=== PATIENT | male | born 1960 | race Caucasian/White ===

== ENCOUNTER 2018-12-17 01:41 | Inpatient (IN) | payer MEDICAID, OTHER ==
[2018-12-17 01:41] VITALS: BMI 32.8
--- NOTE | 2018-12-17 02:03 | C.PDOC ---
History Of Present Illness 58 year old male with Hx of CHF presents with SOB and chest pain. Denies nausea or vomiting. Chief Complaint (Nursing): Chest Pain History Per: Patient History/Exam Limitations: no limitations Onset/Duration Of Symptoms: Hrs Current Symptoms Are (Timing): Still Present Associated Symptoms: Dyspnea. denies: Nausea Exacerbating Factors: None Recent travel outside of the [place]: No Past Medical History Reviewed: Historical Data, Nursing Documentation, Vital Signs Vital Signs: Last Vital Signs Temp 101.3 F H 12/17/18 01:47 Pulse 93 H 12/17/18 02:01 Resp 30 H 12/17/18 01:47 BP 119/77 12/17/18 01:47 Pulse Ox 96 12/17/18 01:47 - Medical History PMH: Colonic Polyps, Gastritis, HTN, Hypercholesterolemia Denies: Chronic Kidney Disease Surgical History: Endoscopy - [facility] Procedures CORONAR ARTERIOGR-2 CATH (09/02/14) ENDOSC POLYPECTOMY OF LG INTEST (12/31/14) ESOPHAGOGASTRODUODENOSCOPY [EGD] W/CLOSED BIOPSY (01/07/15) LEFT HEART CARDIAC CATH (09/02/14) LT HEART ANGIOCARDIOGRAM (09/02/14) Family History: States: Unknown Family Hx - Social History Hx Alcohol Use: No Hx Substance Use: No Review Of Systems Constitutional: Negative for: Fever, Chills Cardiovascular: Positive for: Chest Pain. Negative for: Palpitations Respiratory: Positive for: Shortness of Breath. Negative for: Cough Gastrointestinal: Negative for: Nausea, Vomiting Neurological: Negative for: Weakness, Numbness Physical Exam - Physical Exam Appears: Non-toxic, Other (Dyspenic on bipap) Skin: Normal Color, Warm, Dry Head: Atraumatic, Normacephalic Eye(s): bilateral: Normal Inspection Oral Mucosa: Moist Chest: Symmetrical, No Tenderness Cardiovascular: Rhythm Regular Respiratory: Rales (Bilaterally), No Rhonchi, No Wheezing Gastrointestinal/Abdominal: Soft, No Tenderness Extremity: No Pedal Edema Neurological/Psych: Oriented x3, Normal Speech ED Course And Treatment - Laboratory Results Result Diagrams: 12/17/18 02:19 12/17/18 02:19 ECG: Interpreted By Me, Viewed By Me ECG Rhythm: Sinus Rhythm, ST/T Changes ECG Interpretation: Abnormal Interpretation Of ECG: NSR, ST-T abnormality- inferollateral leads, IVCD- LBBBtype. abnormal trcings. O2 Sat by Pulse Oximetry: 96 (Room air) Pulse Ox Interpretation: Normal Progress Note: Blood work, EKG, CXR, and urinalysis ordered. Disposition Discussed With DrChapis: Eligio Booth Jr. Doctor Will See Patient In The: Hospital Counseled Patient/Family Regarding: Diagnosis - Disposition Disposition: HOSPITALIZED Disposition Time: 03:47 Condition: STABLE Forms: [facility] (Emirati) - POA Present On Arrival: None - Clinical Impression Clinical Impression: Chest pain, Congestive heart failure - Scribe Statement The provider has reviewed the documentation as recorded by the Scribe Silvino Bautista All medical record entries made by the Scribe were at my direction and personally dictated by me. I have reviewed the chart and agree that the record accurately reflects my personal performance of the history, physical exam, medical decision making, and the department course for this patient. I have also personally directed, reviewed, and agree with the discharge instructions and disposition.
[2018-12-17 02:19] LABS: URINE BILIRUBIN NEGATIVE (NEGATIVE); URINE BLOOD NEGATIVE (NEGATIVE); URINE CLARITY Clear (Clear); URINE COLOR Straw (YELLOW); URINE GLUCOSE (UA) NORMAL (Normal); URINE LEUKOCYTE ESTERASE NEG Leu/uL (Negative); URINE PROTEIN NEGATIVE (NEGATIVE); URINE UROBILINOGEN NORMAL mg/dL (0.2-1.0)
[2018-12-17 02:22] LABS: BASO # 0.1 K/uL (0.0-0.2); BASO % 0.7 % (0.0-2.0); EOS # 0.1 K/uL (0.0-0.7); EOS % 0.7 % (0.0-4.0); HEMOGLOBIN 13.1 g/dL (12.0-18.0); LYMPH # 0.7 K/uL (1.0-4.3); LYMPH % 5.6 % (20.0-40.0); MEAN CELL VOLUME 73.1 fL (80.0-94.0); MEAN CORPUSCULAR HEMOGLOBIN 22.2 pg (27.0-31.0); MEAN CORPUSCULAR HGB CONC 30.4 g/dL (33.0-37.0); MEAN PLATELET VOLUME 11.7 fL (7.2-11.7); MONO # 0.6 K/uL (0.0-0.8); MONO % 4.5 % (0.0-10.0); NEUT # 10.9 K/uL (1.8-7.0); NEUT % 88.5 % (50.0-75.0); PLATELET COUNT 176 K/uL (130-400); RBC 5.88 Mil/uL (4.40-5.90); RED CELL DISTRIBUTION WIDTH 16.4 % (11.5-14.5); WHITE BLOOD COUNT 12.3 K/uL (4.8-10.8)
[2018-12-17 02:38] LABS: ALB/GLOB RATIO 1.4 (1.0-2.1); ALBUMIN 4.1 g/dL (3.5-5.0); ALT/SGPT 35 U/L (21-72); AST/SGOT 23 U/L (17-59); BLOOD UREA NITROGEN 18 mg/dL (9-20); CALCIUM 11.4 mg/dl (8.6-10.4); GFR NON-AFRICAN AMERICAN > 60
[2018-12-17 02:43] LABS: ABG ALLEN TEST POS; ARTERIAL BLOOD GAS HCO3 21.7 mmol/L (21-28); ARTERIAL BLOOD GAS O2 SAT 99.6 % (95-98); ARTERIAL BLOOD GAS PCO2 33 mm/Hg (35-45); ARTERIAL BLOOD GAS PH 7.39 (7.35-7.45); ARTERIAL BLOOD GAS PO2 114 mm/Hg (80-100)
[2018-12-17 02:59] LABS: BANDS 1 % (0-2); LYMPHOCYTE 6 % (20-40); MONOCYTE 5 % (0-10); NEUTROPHIL 88 % (50-75); PLATELET ESTIMATE NORMAL (NORMAL); TOTAL CELLS COUNTED 100
--- NOTE | 2018-12-17 04:07 | CP.PCM.HP ---
History of Present Illness - History of Present Illness History of Present Illness: Patient is a 58 year old male w/ pmhx of CHF, HTN, DM2 who presents to the ED for evaluation of acute onset chest pain with associated SOB just prior to arrival. Pt's took his BP at home during episode and reports a reading of 222/100s, and administered aspirin 324mg at home. Pt reports he was recently admitted 12/05/18 at [facility] with similar symptoms and was told he suffered damage to his heart, but is not sure of the diagnosis. Pt was given nitro, lasix by EMS en route, and was placed on BiPAP on arrival. Pt reports chills during episode, and was febrile at 101.3 in ED. Pt reports resolution of symptoms currently while on BiPAP. Denies recent illness, LE pain/edema, cough, nausea, diarrhea. 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 on Admission - Present on Admission Any Indicators Present on Admission: No Review of Systems - Constitutional Constitutional: Chills - EENT Eyes: absent: Blurred Vision - Cardiovascular Cardiovascular: Chest Pain, Dyspnea - Respiratory Respiratory: absent: Cough, Chest Congestion - Gastrointestinal Gastrointestinal: absent: Diarrhea, Nausea, Vomiting - Genitourinary Genitourinary: absent: Dysuria Past Patient History - Infectious Disease Hx of Infectious Diseases: None - Past Medical History & Family History Past Medical History?: Yes - Past Social History Smoking Status: Former Smoker - CARDIAC Hx Hypercholesterolemia: Yes Hx Hypertension: Yes - PULMONARY Hx Respiratory Disorders: No - NEUROLOGICAL Hx Neurological Disorder: No - HEENT Hx HEENT Problems: No - RENAL Hx Chronic Kidney Disease: No - ENDOCRINE/METABOLIC Hx Endocrine Disorders: Yes Hx Diabetes Mellitus Type 2: Yes - HEMATOLOGICAL/ONCOLOGICAL Hx Blood Disorders: No - INTEGUMENTARY Hx Dermatological Problems: No - MUSCULOSKELETAL/RHEUMATOLOGICAL Hx Musculoskeletal Disorders: Yes Other/Comment: RT ANKLE SURGERY - GASTROINTESTINAL Hx Gastritis: Yes - GENITOURINARY/GYNECOLOGICAL Hx Genitourinary Disorders: No - PSYCHIATRIC Hx Substance Use: No - SURGICAL HISTORY Hx Surgeries: Yes Hx Orthopedic Surgery: Yes (RIGHT ANKLE WITH SCREWS) - ANESTHESIA Hx Anesthesia: Yes Hx Anesthesia Reactions: No Hx Malignant Hyperthermia: No Meds Allergies/Adverse Reactions: Allergies Allergy/AdvReac Type Severity Reaction Status Date / Time No Known Allergies Allergy Verified 09/22/15 17:59 Physical Exam - Constitutional Appears: Non-toxic, No Acute Distress - Head Exam Head Exam: ATRAUMATIC, NORMAL INSPECTION, NORMOCEPHALIC - Eye Exam Eye Exam: EOMI, Normal appearance - ENT Exam ENT Exam: Mucous Membranes Dry, Normal Exam - Neck Exam Neck exam: Positive for: Normal Inspection - Respiratory Exam Respiratory Exam: NORMAL BREATHING PATTERN. absent: Wheezes Additional comments: on BiPAP - Cardiovascular Exam Cardiovascular Exam: REGULAR RHYTHM, +S1, +S2. absent: Tachycardia - GI/Abdominal Exam GI & Abdominal Exam: Normal Bowel Sounds, Soft. absent: Tenderness - Extremities Exam Extremities exam: Positive for: normal capillary refill. Negative for: calf tenderness, pedal edema - Neurological Exam Neurological exam: Alert, Oriented x3 - Psychiatric Exam Psychiatric exam: Normal Affect, Normal Mood - Skin Skin Exam: Dry, Intact, Normal Color, Warm Additional comments: skin diffusely dry Results - Vital Signs Recent Vital Signs: Last Vital Signs Temp 101.3 F H 12/17/18 01:47 Pulse 93 H 12/17/18 02:01 Resp 26 H 12/17/18 01:50 BP 119/77 12/17/18 01:47 Pulse Ox 96 12/17/18 03:52 - Labs Result Diagrams: 12/17/18 02:19 12/17/18 02:19 Labs: Laboratory Results - last 24 hr 12/17/18 12/17/18 12/17/18 01:55 02:03 02:19 WBC 12.3 H D RBC 5.88 Hgb 13.1 Hct 43.0 MCV 73.1 L MCH 22.2 L MCHC 30.4 L RDW 16.4 H Plt Count 176 MPV 11.7 Neut % (Auto) 88.5 H Lymph % (Auto) 5.6 L [place] % (Auto) 4.5 Eos % (Auto) 0.7 Baso % (Auto) 0.7 Neut # (Auto) 10.9 H Lymph # (Auto) 0.7 L [place] # (Auto) 0.6 Eos # (Auto) 0.1 Baso # (Auto) 0.1 Neutrophils % (Manual) 88 H Band Neutrophils % 1 Lymphocytes % (Manual) 6 L Monocytes % (Manual) 5 Platelet Estimate Normal D-Dimer, Quantitative Puncture Site pCO2 pO2 HCO3 ABG pH ABG Total CO2 ABG O2 Saturation ABG Base Excess ABG Hemoglobin ABG Carboxyhemoglobin POC ABG HHb (Measured) ABG Methemoglobin Emeka Test A-a O2 Difference Respiratory Index Hgb O2 Saturation Vent Mode FiO2 Inspiratory BiPAP Expiratory BiPAP Sodium Potassium Chloride Carbon Dioxide Anion Gap BUN Creatinine Est GFR ( Amer) Est GFR (Non-Af Amer) POC Glucose (mg/dL) 227 H Random Glucose Calcium Total Bilirubin AST ALT Alkaline Phosphatase Troponin I NT-Pro-B Natriuret Pep Total Protein Albumin Globulin Albumin/Globulin Ratio Urine Color Straw Urine Clarity Clear Urine pH 5.0 Ur Specific [place] 1.008 Urine Protein Negative Urine Glucose (UA) Normal Urine Ketones Negative Urine Blood Negative Urine Nitrate Negative Urine Bilirubin Negative Urine Urobilinogen Normal Ur Leukocyte Esterase Neg Urine WBC (Auto) < 1 Urine RBC (Auto) < 1 12/17/18 12/17/18 12/17/18 02:19 02:19 02:20 WBC RBC Hgb Hct MCV MCH MCHC RDW Plt Count MPV Neut % (Auto) Lymph % (Auto) [place] % (Auto) Eos % (Auto) Baso % (Auto) Neut # (Auto) Lymph # (Auto) [place] # (Auto) Eos # (Auto) Baso # (Auto) Neutrophils % (Manual) Band Neutrophils % Lymphocytes % (Manual) Monocytes % (Manual) Platelet Estimate D-Dimer, Quantitative < 200 Puncture Site R rad pCO2 33 L pO2 114 H HCO3 21.7 ABG pH 7.39 ABG Total CO2 21.0 L ABG O2 Saturation 99.6 H ABG Base Excess -4.1 L ABG Hemoglobin 13.0 ABG Carboxyhemoglobin 1.9 H POC ABG HHb (Measured) 0.4 ABG Methemoglobin 1.7 Emeka Test Pos A-a O2 Difference 130.0 Respiratory Index 1.1 Hgb O2 Saturation 96.0 Vent Mode Bipap FiO2 40.0 Inspiratory BiPAP 12 Expiratory BiPAP 6 Sodium 134 Potassium 4.5 Chloride 105 Carbon Dioxide 22 Anion Gap 12 BUN 18 Creatinine 1.2 Est GFR ( Amer) > 60 Est GFR (Non-Af Amer) > 60 POC Glucose (mg/dL) Random Glucose 213 H D Calcium 11.4 H Total Bilirubin 0.7 AST 23 ALT 35 Alkaline Phosphatase 123 Troponin I < 0.0120 NT-Pro-B Natriuret Pep Total Protein 7.2 Albumin 4.1 Globulin 3.1 Albumin/Globulin Ratio 1.4 Urine Color Urine Clarity Urine pH Ur Specific [place] Urine Protein Urine Glucose (UA) Urine Ketones Urine Blood Urine Nitrate Urine Bilirubin Urine Urobilinogen Ur Leukocyte Esterase Urine WBC (Auto) Urine RBC (Auto) 12/17/18 03:08 WBC RBC Hgb Hct MCV MCH MCHC RDW Plt Count MPV Neut % (Auto) Lymph % (Auto) [place] % (Auto) Eos % (Auto) Baso % (Auto) Neut # (Auto) Lymph # (Auto) [place] # (Auto) Eos # (Auto) Baso # (Auto) Neutrophils % (Manual) Band Neutrophils % Lymphocytes % (Manual) Monocytes % (Manual) Platelet Estimate D-Dimer, Quantitative Puncture Site pCO2 pO2 HCO3 ABG pH ABG Total CO2 ABG O2 Saturation ABG Base Excess ABG Hemoglobin ABG Carboxyhemoglobin POC ABG HHb (Measured) ABG Methemoglobin Emeka Test A-a O2 Difference Respiratory Index Hgb O2 Saturation Vent Mode FiO2 Inspiratory BiPAP Expiratory BiPAP Sodium Potassium Chloride Carbon Dioxide Anion Gap BUN Creatinine Est GFR ( Amer) Est GFR (Non-Af Amer) POC Glucose (mg/dL) Random Glucose Calcium Total Bilirubin AST ALT Alkaline Phosphatase Troponin I NT-Pro-B Natriuret Pep 1280 H Total Protein Albumin Globulin Albumin/Globulin Ratio Urine Color Urine Clarity Urine pH Ur Specific [place] Urine Protein Urine Glucose (UA) Urine Ketones Urine Blood Urine Nitrate Urine Bilirubin Urine Urobilinogen Ur Leukocyte Esterase Urine WBC (Auto) Urine RBC (Auto) Assessment & Plan - Assessment and Plan (Free Text) Assessment: 58 year old male with pmhx CHF, HTN, DM2 admitted for evaluation of acute onset chest pain and SOB Plan: Chest pain, r/o ACS Monitor on telemetry EKG: LVH, QRS widening with repolarization abnormality F/U RUBEN, first troponin negative f/u hgb a1c f/u lipid panel ASA 81mg start crestor 5mg po HS Cardio consult, SOB r/o CHF exacerbation pBNP 1280 on admission BiPAP prn I/Os r/o PE d-dimer <200 Hypercalcemia 11.4 on admission PTH(2013) elevated at 140 f/u PTH ordered f/u ionized Ca+ f/u Vit D f/u CLEMENTINA level NS @75 Fever/Leukocytosis f/u blood cx f/u cxr report Tylenol 650mg po q6 prn DM2 hold home metformin f/u hgb a1c ISS-medium accuchecks ACHS hypoglycemia protocol HTN hold home meds pt hypotensive likely 2/2 dehydration NS @75 Ppx: heparin 5000 q8 pepcid 20mg po BID Discussed with Dr. Emmy Garza, PGY-1
[2018-12-17] MEDS ORDERED: Glucagon Recombinant 1 mg Inj IM PRN (05:10)
[2018-12-17] MEDS ORDERED: Dextrose 50% SYRINGE Inj (50 ml) IV PRN (05:10)
[2018-12-17] MEDS ORDERED: Sodium Chloride 0.9% 1,000 ML IV SCH (05:30)
[2018-12-17 06:23] LABS: INR 1.3; PROTHROMBIN TIME 13.7 SECONDS (9.7-12.2)
--- NOTE | 2018-12-17 07:30 | RAD ---
Chest x-ray single frontal view History: Shortness of breath. Comparison: None available. Findings: Moderate venous congestion. Bibasilar airspace opacities. Bilateral hilar prominence. Enlarged ectatic aorta. Cardiomegaly. Upper lobe granulomatous changes. Impression: Moderate venous congestion. Bibasilar airspace opacities. Bilateral hilar prominence. Enlarged ectatic aorta. Cardiomegaly.
[2018-12-17] MEDS: (Novolin R) Insulin Human Regular 100 units/ml vial SC SCH ×4 (08:00→21:42)
--- NOTE | 2018-12-17 08:13 | CP.PCM.PN ---
Subjective - Date & Time of Evaluation Date of Evaluation: 12/17/18 Time of Evaluation: 08:01 - Subjective Subjective: Medicine Note for Hospitalist Service Patient was seen and examined at bedside. Patient reports his breathing has improved, denied any chest pain. Objective - Vital Signs/Intake and Output Vital Signs (last 24 hours): Temp Pulse Resp BP Pulse Ox 97.4 F L 60 20 97/58 L 99 12/17/18 07:03 12/17/18 07:03 12/17/18 07:03 12/17/18 07:03 12/17/18 06:04 - Medications Medications: Current Medications Acetaminophen (Tylenol 325mg Tab) 650 mg PO Q6 PRN PRN Reason: Fever >100.4 F Aspirin (Aspirin Chewable) 81 mg PO DAILY [facility] Dextrose (Dextrose 50% Inj) 0 ml IV STAT PRN; Protocol PRN Reason: Hypoglycemia Protocol Dextrose (Glutose 15) 0 gm PO ONCE PRN; Protocol PRN Reason: Hypoglycemia Protocol Famotidine (Pepcid) 20 mg PO BID UGO Glucagon (Glucagen Diagnostic Kit) 0 mg IM STAT PRN; Protocol PRN Reason: Hypoglycemia Protocol Heparin Sodium (Porcine) (Heparin) 5,000 units SC Q8 [facility] Last Admin: 12/17/18 07:01 Dose: 5,000 units Dextrose (Dextrose 5% In Water 1000 Ml) 1,000 mls @ 0 mls/hr IV .Q0M PRN; Protocol PRN Reason: Hypoglycemia Protocol Sodium Chloride (Sodium Chloride 0.9%) 1,000 mls @ 75 mls/hr IV .[id number] [facility] Last Admin: 12/17/18 07:01 Dose: 75 mls/hr Insulin Human Regular (Novolin R) 0 unit SC ACHS [facility]; Protocol Rosuvastatin Calcium (Crestor) 5 mg PO HS [facility] - Labs Labs: 12/17/18 02:19 12/17/18 02:19 PT 13.7 SECONDS (9.7-12.2) H 12/17/18 06:15 INR 1.3 12/17/18 06:15 APTT 35 SECONDS (21-34) H 12/17/18 06:15 - Constitutional Appears: No Acute Distress - Head Exam Head Exam: ATRAUMATIC, NORMAL INSPECTION, NORMOCEPHALIC - Eye Exam Eye Exam: EOMI, Normal appearance, PERRL Pupil Exam: NORMAL ACCOMODATION - ENT Exam ENT Exam: Mucous Membranes Moist - Respiratory Exam Respiratory Exam: Rales (faint rales at both lung bases ), NORMAL BREATHING PATTERN - Cardiovascular Exam Cardiovascular Exam: REGULAR RHYTHM, +S1, +S2 - GI/Abdominal Exam GI & Abdominal Exam: Soft, Normal Bowel Sounds. absent: Distended, Tenderness - Extremities Exam Extremities Exam: Normal Inspection. absent: Pedal Edema, Tenderness - Neurological Exam Neurological Exam: Alert, Awake, Oriented x3 - Psychiatric Exam Psychiatric exam: Normal Affect, Normal Mood - Skin Skin Exam: Dry, Intact, Normal Color, Warm Assessment and Plan - Assessment and Plan (Free Text) Plan: Chest Pain R/O ACS -- Cardiology consulted - Dr. Hazel Management: - RUBEN x 2 negative, will trend RUBEN x 1 - EKG: LVH noted - ECHO ordered - ASA, Crestor - Will follow up with Cardio reccs Hx of Heart Failure Imaging: - ECHO ordered Management: - BNP 1280, no prior to compare - Will not diuresis as patient is clinically dry Febrile, Leukocytosis, Hypotensive SIRS Criteria Imaging: - CXR: No infiltrates noted Management: - UA - clean, UC ordered - Blood Cultures ordered - Flu negative - Procal ordered - Currently off BiPAP - Gentle fluids started, will monitor to prevent fluid overload Hypercalcemia Hx of Hyperparathyroidism? Management: - Labs ordered for workup Hypertension - Held BP meds in light of hypotension Type 2 DM - Accuchecks ACHS - Hypoglycemia protocol - ISS- Medium, held Metformin - A1C 6.9 Prophylactic Measures - GI PPX: Pepcid - DVT PPX: SCDs, Hep Q8H - HHD DW Maria Del Rosario Loya DO, PGY2
[2018-12-17 08:23] LABS: HDL CHOLESTEROL 29 mg/dL (30-70)
[2018-12-17 08:33] LABS: CK-MB 0.46 ng/mL (0.0-3.38)
[2018-12-17 08:49] LABS: LDL CHOLESTEROL 84 mg/dL (0-129)
[2018-12-17] MEDS: Sodium Chloride 0.45% 1,000 ML IV SCH (12:00)
[2018-12-17 15:00] LABS: CK-MB 0.52 ng/mL (0.0-3.38)
--- NOTE | 2018-12-17 23:38 | CP.PCM.CON ---
History of Present Illness - History of Present Illness History of Present Illness: CC: Dyspnea and Chest pain Patient is a 58 year old male w/ pmhx of CHF, HTN, DM2 who presents to the ED for evaluation of acute onset chest pain with associated SOB just prior to arrival. Pt's took his BP at home during episode and reports a reading of 222/100s, and administered aspirin 324mg at home. Pt reports he was recently admitted 12/05/18 at [facility] with similar symptoms and was told he suffered damage to his heart, but is not sure of the diagnosis. Pt was given nitro, lasix by EMS en route, and was placed on BiPAP on arrival. Pt reports chills during episode, and was febrile at 101.3 in ED. Pt reports resolution of symptoms currently while on BiPAP. Denies recent illness, LE pain/edema, cough, nausea, diarrhea. 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, over[employer] Present on Admission - Present on Admission Any Indicators Present on Admission: No Review of Systems - Constitutional Constitutional: Chills - EENT Eyes: absent: Blurred Vision - Cardiovascular Cardiovascular: Chest Pain, Dyspnea - Respiratory Respiratory: absent: Cough, Chest Congestion - Gastrointestinal Gastrointestinal: absent: Diarrhea, Nausea, Vomiting - Genitourinary Genitourinary: absent: Dysuria Past Patient History - Infectious Disease Hx of Infectious Diseases: None - Past Medical History & Family History Past Medical History?: Yes - Past Social History Smoking Status: Former Smoker - CARDIAC Hx Hypercholesterolemia: Yes Hx Hypertension: Yes - PULMONARY Hx Respiratory Disorders: No - NEUROLOGICAL Hx Neurological Disorder: No - HEENT Hx HEENT Problems: No - RENAL Hx Chronic Kidney Disease: No - ENDOCRINE/METABOLIC Hx Endocrine Disorders: Yes Hx Diabetes Mellitus Type 2: Yes - HEMATOLOGICAL/ONCOLOGICAL Hx Blood Disorders: No - INTEGUMENTARY Hx Dermatological Problems: No - MUSCULOSKELETAL/RHEUMATOLOGICAL Hx Musculoskeletal Disorders: Yes Other/Comment: RT ANKLE SURGERY - GASTROINTESTINAL Hx Gastritis: Yes - GENITOURINARY/GYNECOLOGICAL Hx Genitourinary Disorders: No - PSYCHIATRIC Hx Substance Use: No - SURGICAL HISTORY Hx Surgeries: Yes Hx Orthopedic Surgery: Yes (RIGHT ANKLE WITH SCREWS) - ANESTHESIA Hx Anesthesia: Yes Hx Anesthesia Reactions: No Hx Malignant Hyperthermia: No Meds Allergies/Adverse Reactions: Allergies Allergy/AdvReac Type Severity Reaction Status Date / Time No Known Allergies Allergy Verified 09/22/15 17:59 Physical Exam - Constitutional Appears: Non-toxic, No Acute Distress - Head Exam Head Exam: ATRAUMATIC, NORMAL INSPECTION, NORMOCEPHALIC - Eye Exam Eye Exam: EOMI, Normal appearance - ENT Exam ENT Exam: Mucous Membranes Dry, Normal Exam - Neck Exam Neck exam: Positive for: Normal Inspection - Respiratory Exam Respiratory Exam: NORMAL BREATHING PATTERN. absent: Wheezes Additional comments: on BiPAP - Cardiovascular Exam Cardiovascular Exam: REGULAR RHYTHM, +S1, +S2. absent: Tachycardia - GI/Abdominal Exam GI & Abdominal Exam: Normal Bowel Sounds, Soft. absent: Tenderness - Extremities Exam Extremities exam: Positive for: normal capillary refill. Negative for: calf tenderness, pedal edema - Neurological Exam Neurological exam: Alert, Oriented x3 - Psychiatric Exam Psychiatric exam: Normal Affect, Normal Mood - Skin Skin Exam: Dry, Intact, Normal Color, Warm Additional comments: skin diffusely dry Results - Vital Signs Recent Vital Signs: Last Vital Signs Temp 101.3 F H 12/17/18 01:47 Pulse 93 H 12/17/18 02:01 Resp 26 H 12/17/18 01:50 BP 119/77 12/17/18 01:47 Pulse Ox 96 12/17/18 03:52 - Labs Result Diagrams: 12/17/18 02:19 12/17/18 02:19 Labs: Laboratory Results - last 24 hr 12/17/18 12/17/18 12/17/18 01:55 02:03 02:19 WBC 12.3 H D RBC 5.88 Hgb 13.1 Hct 43.0 MCV 73.1 L MCH 22.2 L MCHC 30.4 L RDW 16.4 H Plt Count 176 MPV 11.7 Neut % (Auto) 88.5 H Lymph % (Auto) 5.6 L [place] % (Auto) 4.5 Eos % (Auto) 0.7 Baso % (Auto) 0.7 Neut # (Auto) 10.9 H Lymph # (Auto) 0.7 L [place] # (Auto) 0.6 Eos # (Auto) 0.1 Baso # (Auto) 0.1 Neutrophils % (Manual) 88 H Band Neutrophils % 1 Lymphocytes % (Manual) 6 L Monocytes % (Manual) 5 Platelet Estimate Normal D-Dimer, Quantitative Puncture Site pCO2 pO2 HCO3 ABG pH ABG Total CO2 ABG O2 Saturation ABG Base Excess ABG Hemoglobin ABG Carboxyhemoglobin POC ABG HHb (Measured) ABG Methemoglobin Emeka Test A-a O2 Difference Respiratory Index Hgb O2 Saturation Vent Mode FiO2 Inspiratory BiPAP Expiratory BiPAP Sodium Potassium Chloride Carbon Dioxide Anion Gap BUN Creatinine Est GFR ( Amer) Est GFR (Non-Af Amer) POC Glucose (mg/dL) 227 H Random Glucose Calcium Total Bilirubin AST ALT Alkaline Phosphatase Troponin I NT-Pro-B Natriuret Pep Total Protein Albumin Globulin Albumin/Globulin Ratio Urine Color Straw Urine Clarity Clear Urine pH 5.0 Ur Specific [place] 1.008 Urine Protein Negative Urine Glucose (UA) Normal Urine Ketones Negative Urine Blood Negative Urine Nitrate Negative Urine Bilirubin Negative Urine Urobilinogen Normal Ur Leukocyte Esterase Neg Urine WBC (Auto) < 1 Urine RBC (Auto) < 1 12/17/18 12/17/18 12/17/18 02:19 02:19 02:20 WBC RBC Hgb Hct MCV MCH MCHC RDW Plt Count MPV Neut % (Auto) Lymph % (Auto) [place] % (Auto) Eos % (Auto) Baso % (Auto) Neut # (Auto) Lymph # (Auto) [place] # (Auto) Eos # (Auto) Baso # (Auto) Neutrophils % (Manual) Band Neutrophils % Lymphocytes % (Manual) Monocytes % (Manual) Platelet Estimate D-Dimer, Quantitative < 200 Puncture Site R rad pCO2 33 L pO2 114 H HCO3 21.7 ABG pH 7.39 ABG Total CO2 21.0 L ABG O2 Saturation 99.6 H ABG Base Excess -4.1 L ABG Hemoglobin 13.0 ABG Carboxyhemoglobin 1.9 H POC ABG HHb (Measured) 0.4 ABG Methemoglobin 1.7 Emeka Test Pos A-a O2 Difference 130.0 Respiratory Index 1.1 Hgb O2 Saturation 96.0 Vent Mode Bipap FiO2 40.0 Inspiratory BiPAP 12 Expiratory BiPAP 6 Sodium 134 Potassium 4.5 Chloride 105 Carbon Dioxide 22 Anion Gap 12 BUN 18 Creatinine 1.2 Est GFR ( Amer) > 60 Est GFR (Non-Af Amer) > 60 POC Glucose (mg/dL) Random Glucose 213 H D Calcium 11.4 H Total Bilirubin 0.7 AST 23 ALT 35 Alkaline Phosphatase 123 Troponin I < 0.0120 NT-Pro-B Natriuret Pep Total Protein 7.2 Albumin 4.1 Globulin 3.1 Albumin/Globulin Ratio 1.4 Urine Color Urine Clarity Urine pH Ur Specific [place] Urine Protein Urine Glucose (UA) Urine Ketones Urine Blood Urine Nitrate Urine Bilirubin Urine Urobilinogen Ur Leukocyte Esterase Urine WBC (Auto) Urine RBC (Auto) 12/17/18 03:08 WBC RBC Hgb Hct MCV MCH MCHC RDW Plt Count MPV Neut % (Auto) Lymph % (Auto) [place] % (Auto) Eos % (Auto) Baso % (Auto) Neut # (Auto) Lymph # (Auto) [place] # (Auto) Eos # (Auto) Baso # (Auto) Neutrophils % (Manual) Band Neutrophils % Lymphocytes % (Manual) Monocytes % (Manual) Platelet Estimate D-Dimer, Quantitative Puncture Site pCO2 pO2 HCO3 ABG pH ABG Total CO2 ABG O2 Saturation ABG Base Excess ABG Hemoglobin ABG Carboxyhemoglobin POC ABG HHb (Measured) ABG Methemoglobin Emeka Test A-a O2 Difference Respiratory Index Hgb O2 Saturation Vent Mode FiO2 Inspiratory BiPAP Expiratory BiPAP Sodium Potassium Chloride Carbon Dioxide Anion Gap BUN Creatinine Est GFR ( Amer) Est GFR (Non-Af Amer) POC Glucose (mg/dL) Random Glucose Calcium Total Bilirubin AST ALT Alkaline Phosphatase Troponin I NT-Pro-B Natriuret Pep 1280 H Total Protein Albumin Globulin Albumin/Globulin Ratio Urine Color Urine Clarity Urine pH Ur Specific [place] Urine Protein Urine Glucose (UA) Urine Ketones Urine Blood Urine Nitrate Urine Bilirubin Urine Urobilinogen Ur Leukocyte Esterase Urine WBC (Auto) Urine RBC (Auto) Assessment & Plan - Assessment and Plan (Free Text) Assessment: 58 year old male with pmhx CHF, HTN, DM2 admitted for evaluation of acute onset chest pain and SOB Plan: Chest pain, r/o ACS Monitor on telemetry EKG: LVH, QRS widening with repolarization abnormality F/U RUBEN, first troponin negative f/u hgb a1c f/u lipid panel ASA 81mg start crestor 5mg po HS SOB r/o CHF exacerbation pBNP 1280 on admission BiPAP prn I/Os r/o PE d-dimer <200 Hypercalcemia 11.4 on admission PTH(2013) elevated at 140 f/u PTH ordered f/u ionized Ca+ f/u Vit D f/u CLEMENTINA level NS @75 Fever/Leukocytosis f/u blood cx f/u cxr report Tylenol 650mg po q6 prn DM2 hold home metformin f/u hgb a1c ISS-medium accuchecks ACHS hypoglycemia protocol HTN hold home meds pt hypotensive likely 2/2 dehydration NS @75 Ppx: heparin 5000 q8 pepcid 20mg po BID Discussed with Dr. Emmy Garza, PGY-1 Check ECHO Possible Cardiac cath Tuesday Past Patient History - Infectious Disease Hx of Infectious Diseases: None - Past Medical History & Family History Past Medical History?: Yes - Past Social History Smoking Status: Former Smoker - CARDIAC Hx Cardiac Disorders: Yes Hx Congestive Heart Failure: Yes Hx Hypercholesterolemia: Yes Hx Hypertension: Yes Hx Hypotension: Yes - PULMONARY Hx Respiratory Disorders: No - NEUROLOGICAL Hx Neurological Disorder: No - HEENT Hx HEENT Problems: No - RENAL Hx Chronic Kidney Disease: No - ENDOCRINE/METABOLIC Hx Endocrine Disorders: Yes Hx Diabetes Mellitus Type 2: Yes - HEMATOLOGICAL/ONCOLOGICAL Hx Blood Disorders: No - INTEGUMENTARY Hx Dermatological Problems: No - MUSCULOSKELETAL/RHEUMATOLOGICAL Hx Falls: No - GASTROINTESTINAL Hx Gastritis: Yes - GENITOURINARY/GYNECOLOGICAL Hx Genitourinary Disorders: No - PSYCHIATRIC Hx Substance Use: No - SURGICAL HISTORY Hx Surgeries: Yes Hx Orthopedic Surgery: Yes (RIGHT ANKLE WITH SCREWS) - ANESTHESIA Hx Anesthesia: Yes Hx Anesthesia Reactions: No Hx Malignant Hyperthermia: No Meds Allergies/Adverse Reactions: Allergies Allergy/AdvReac Type Severity Reaction Status Date / Time No Known Allergies Allergy Verified 09/22/15 17:59 - Medications Medications: Current Medications Acetaminophen (Tylenol 325mg Tab) 650 mg PO Q6 PRN PRN Reason: Fever >100.4 F Aspirin (Aspirin Chewable) 81 mg PO DAILY [facility] Last Admin: 12/17/18 11:00 Dose: 81 mg Dextrose (Dextrose 50% Inj) 0 ml IV STAT PRN; Protocol PRN Reason: Hypoglycemia Protocol Dextrose (Glutose 15) 0 gm PO ONCE PRN; Protocol PRN Reason: Hypoglycemia Protocol Famotidine (Pepcid) 20 mg PO BID [facility] Last Admin: 12/17/18 18:17 Dose: 20 mg Glucagon (Glucagen Diagnostic Kit) 0 mg IM STAT PRN; Protocol PRN Reason: Hypoglycemia Protocol Heparin Sodium (Porcine) (Heparin) 5,000 units SC Q8 [facility] Last Admin: 12/17/18 21:17 Dose: 5,000 units Dextrose (Dextrose 5% In Water 1000 Ml) 1,000 mls @ 0 mls/hr IV .Q0M PRN; Protocol PRN Reason: Hypoglycemia Protocol Sodium Chloride (Sodium Chloride 0.45%) 1,000 mls @ 60 mls/hr IV .[id number] [facility] Last Admin: 12/17/18 12:00 Dose: 60 mls/hr Influenza Virus Vaccine (Flucelvax Quad [id number] Syr) 60 mcg IM .ONCE ONE Stop: 12/18/18 10:01 Insulin Human Regular (Novolin R) 0 unit SC ACHS [facility]; Protocol Last Admin: 12/17/18 21:42 Dose: Not Given Pneumococcal Polyvalent Vaccine (Pneumovax 23 Vaccine) 0.5 ml IM .ONCE ONE Stop: 12/18/18 10:01 Rosuvastatin Calcium (Crestor) 5 mg PO HS [facility] Last Admin: 12/17/18 21:19 Dose: 5 mg Results - Vital Signs Recent Vital Signs: Last Vital Signs Temp 97.9 F 12/17/18 16:00 Pulse 60 12/17/18 16:00 Resp 20 12/17/18 16:00 BP 102/64 12/17/18 16:00 Pulse Ox 98 12/17/18 16:00 - Labs Result Diagrams: 12/17/18 02:19 12/17/18 02:19 Labs: Laboratory Results - last 24 hr 12/17/18 12/17/18 12/17/18 01:55 02:03 02:19 WBC 12.3 H D RBC 5.88 Hgb 13.1 Hct 43.0 MCV 73.1 L MCH 22.2 L MCHC 30.4 L RDW 16.4 H Plt Count 176 MPV 11.7 Neut % (Auto) 88.5 H Lymph % (Auto) 5.6 L [place] % (Auto) 4.5 Eos % (Auto) 0.7 Baso % (Auto) 0.7 Neut # (Auto) 10.9 H Lymph # (Auto) 0.7 L [place] # (Auto) 0.6 Eos # (Auto) 0.1 Baso # (Auto) 0.1 Neutrophils % (Manual) 88 H Band Neutrophils % 1 Lymphocytes % (Manual) 6 L Monocytes % (Manual) 5 Platelet Estimate Normal PT INR APTT D-Dimer, Quantitative Puncture Site pCO2 pO2 HCO3 ABG pH ABG Total CO2 ABG O2 Saturation ABG Base Excess ABG Hemoglobin ABG Carboxyhemoglobin POC ABG HHb (Measured) ABG Methemoglobin Emeka Test A-a O2 Difference Respiratory Index Hgb O2 Saturation Vent Mode FiO2 Inspiratory BiPAP Expiratory BiPAP Sodium Potassium Chloride Carbon Dioxide Anion Gap BUN Creatinine Est GFR ( Amer) Est GFR (Non-Af Amer) POC Glucose (mg/dL) 227 H Random Glucose Hemoglobin A1c Calcium Phosphorus Magnesium Total Bilirubin AST ALT Alkaline Phosphatase Total Creatine Kinase CK-MB (Mass) Troponin I NT-Pro-B Natriuret Pep Total Protein Albumin Globulin Albumin/Globulin Ratio Triglycerides Cholesterol LDL Cholesterol Direct HDL Cholesterol 25-OH Vitamin D Total Procalcitonin Urine Color Straw Urine Clarity Clear Urine pH 5.0 Ur Specific [place] 1.008 Urine Protein Negative Urine Glucose (UA) Normal Urine Ketones Negative Urine Blood Negative Urine Nitrate Negative Urine Bilirubin Negative Urine Urobilinogen Normal Ur Leukocyte Esterase Neg Urine WBC (Auto) < 1 Urine RBC (Auto) < 1 Influenza Typ A,B (EIA) 12/17/18 12/17/18 12/17/18 02:19 02:19 02:20 WBC RBC Hgb Hct MCV MCH MCHC RDW Plt Count MPV Neut % (Auto) Lymph % (Auto) [place] % (Auto) Eos % (Auto) Baso % (Auto) Neut # (Auto) Lymph # (Auto) [place] # (Auto) Eos # (Auto) Baso # (Auto) Neutrophils % (Manual) Band Neutrophils % Lymphocytes % (Manual) Monocytes % (Manual) Platelet Estimate PT INR APTT D-Dimer, Quantitative < 200 Puncture Site R rad pCO2 33 L pO2 114 H HCO3 21.7 ABG pH 7.39 ABG Total CO2 21.0 L ABG O2 Saturation 99.6 H ABG Base Excess -4.1 L ABG Hemoglobin 13.0 ABG Carboxyhemoglobin 1.9 H POC ABG HHb (Measured) 0.4 ABG Methemoglobin 1.7 Emeka Test Pos A-a O2 Difference 130.0 Respiratory Index 1.1 Hgb O2 Saturation 96.0 Vent Mode Bipap FiO2 40.0 Inspiratory BiPAP 12 Expiratory BiPAP 6 Sodium 134 Potassium 4.5 Chloride 105 Carbon Dioxide 22 Anion Gap 12 BUN 18 Creatinine 1.2 Est GFR ( Amer) > 60 Est GFR (Non-Af Amer) > 60 POC Glucose (mg/dL) Random Glucose 213 H D Hemoglobin A1c Calcium 11.4 H Phosphorus Magnesium Total Bilirubin 0.7 AST 23 ALT 35 Alkaline Phosphatase 123 Total Creatine Kinase CK-MB (Mass) Troponin I < 0.0120 NT-Pro-B Natriuret Pep Total Protein 7.2 Albumin 4.1 Globulin 3.1 Albumin/Globulin Ratio 1.4 Triglycerides Cholesterol LDL Cholesterol Direct HDL Cholesterol 25-OH Vitamin D Total Procalcitonin Urine Color Urine Clarity Urine pH Ur Specific [place] Urine Protein Urine Glucose (UA) Urine Ketones Urine Blood Urine Nitrate Urine Bilirubin Urine Urobilinogen Ur Leukocyte Esterase Urine WBC (Auto) Urine RBC (Auto) Influenza Typ A,B (EIA) 12/17/18 12/17/18 12/17/18 03:08 06:12 06:15 WBC RBC Hgb Hct MCV MCH MCHC RDW Plt Count MPV Neut % (Auto) Lymph % (Auto) [place] % (Auto) Eos % (Auto) Baso % (Auto) Neut # (Auto) Lymph # (Auto) [place] # (Auto) Eos # (Auto) Baso # (Auto) Neutrophils % (Manual) Band Neutrophils % Lymphocytes % (Manual) Monocytes % (Manual) Platelet Estimate PT 13.7 H INR 1.3 APTT 35 H D-Dimer, Quantitative Puncture Site pCO2 pO2 HCO3 ABG pH ABG Total CO2 ABG O2 Saturation ABG Base Excess ABG Hemoglobin ABG Carboxyhemoglobin POC ABG HHb (Measured) ABG Methemoglobin Emeka Test A-a O2 Difference Respiratory Index Hgb O2 Saturation Vent Mode FiO2 Inspiratory BiPAP Expiratory BiPAP Sodium Potassium Chloride Carbon Dioxide Anion Gap BUN Creatinine Est GFR ( Amer) Est GFR (Non-Af Amer) POC Glucose (mg/dL) Random Glucose Hemoglobin A1c Calcium Phosphorus Magnesium Total Bilirubin AST ALT Alkaline Phosphatase Total Creatine Kinase CK-MB (Mass) Troponin I NT-Pro-B Natriuret Pep 1280 H Total Protein Albumin Globulin Albumin/Globulin Ratio Triglycerides Cholesterol LDL Cholesterol Direct HDL Cholesterol 25-OH Vitamin D Total Procalcitonin Urine Color Urine Clarity Urine pH Ur Specific [place] Urine Protein Urine Glucose (UA) Urine Ketones Urine Blood Urine Nitrate Urine Bilirubin Urine Urobilinogen Ur Leukocyte Esterase Urine WBC (Auto) Urine RBC (Auto) Influenza Typ A,B (EIA) Negative for flu a/b 12/17/18 12/17/18 12/17/18 06:15 06:45 07:59 WBC RBC Hgb Hct MCV MCH MCHC RDW Plt Count MPV Neut % (Auto) Lymph % (Auto) [place] % (Auto) Eos % (Auto) Baso % (Auto) Neut # (Auto) Lymph # (Auto) [place] # (Auto) Eos # (Auto) Baso # (Auto) Neutrophils % (Manual) Band Neutrophils % Lymphocytes % (Manual) Monocytes % (Manual) Platelet Estimate PT INR APTT D-Dimer, Quantitative Puncture Site pCO2 pO2 HCO3 ABG pH ABG Total CO2 ABG O2 Saturation ABG Base Excess ABG Hemoglobin ABG Carboxyhemoglobin POC ABG HHb (Measured) ABG Methemoglobin Emeka Test A-a O2 Difference Respiratory Index Hgb O2 Saturation Vent Mode FiO2 Inspiratory BiPAP Expiratory BiPAP Sodium Potassium Chloride Carbon Dioxide Anion Gap BUN Creatinine Est GFR ( Amer) Est GFR (Non-Af Amer) POC Glucose (mg/dL) 140 H Random Glucose Hemoglobin A1c 6.9 H Calcium Phosphorus 2.6 Magnesium 1.6 Total Bilirubin AST ALT Alkaline Phosphatase Total Creatine Kinase 37 L CK-MB (Mass) 0.46 Troponin I < 0.0120 NT-Pro-B Natriuret Pep Total Protein Albumin Globulin Albumin/Globulin Ratio Triglycerides 138 Cholesterol 144 LDL Cholesterol Direct 84 HDL Cholesterol 29 L 25-OH Vitamin D Total Procalcitonin Urine Color Urine Clarity Urine pH Ur Specific [place] Urine Protein Urine Glucose (UA) Urine Ketones Urine Blood Urine Nitrate Urine Bilirubin Urine Urobilinogen Ur Leukocyte Esterase Urine WBC (Auto) Urine RBC (Auto) Influenza Typ A,B (EIA) 12/17/18 12/17/18 12/17/18 07:59 10:03 11:04 WBC RBC Hgb Hct MCV MCH MCHC RDW Plt Count MPV Neut % (Auto) Lymph % (Auto) [place] % (Auto) Eos % (Auto) Baso % (Auto) Neut # (Auto) Lymph # (Auto) [place] # (Auto) Eos # (Auto) Baso # (Auto) Neutrophils % (Manual) Band Neutrophils % Lymphocytes % (Manual) Monocytes % (Manual) Platelet Estimate PT INR APTT D-Dimer, Quantitative Puncture Site pCO2 pO2 HCO3 ABG pH ABG Total CO2 ABG O2 Saturation ABG Base Excess ABG Hemoglobin ABG Carboxyhemoglobin POC ABG HHb (Measured) ABG Methemoglobin Emeka Test A-a O2 Difference Respiratory Index Hgb O2 Saturation Vent Mode FiO2 Inspiratory BiPAP Expiratory BiPAP Sodium Potassium Chloride Carbon Dioxide Anion Gap BUN Creatinine Est GFR ( Amer) Est GFR (Non-Af Amer) POC Glucose (mg/dL) 205 H Random Glucose Hemoglobin A1c Calcium Phosphorus Magnesium Total Bilirubin AST ALT Alkaline Phosphatase Total Creatine Kinase CK-MB (Mass) Troponin I NT-Pro-B Natriuret Pep Total Protein Albumin Globulin Albumin/Globulin Ratio Triglycerides Cholesterol LDL Cholesterol Direct HDL Cholesterol 25-OH Vitamin D Total 22.6 L Procalcitonin 1.46 H Urine Color Urine Clarity Urine pH Ur Specific [place] Urine Protein Urine Glucose (UA) Urine Ketones Urine Blood Urine Nitrate Urine Bilirubin Urine Urobilinogen Ur Leukocyte Esterase Urine WBC (Auto) Urine RBC (Auto) Influenza Typ A,B (EIA) 12/17/18 12/17/18 12/17/18 14:07 17:30 21:27 WBC RBC Hgb Hct MCV MCH MCHC RDW Plt Count MPV Neut % (Auto) Lymph % (Auto) [place] % (Auto) Eos % (Auto) Baso % (Auto) Neut # (Auto) Lymph # (Auto) [place] # (Auto) Eos # (Auto) Baso # (Auto) Neutrophils % (Manual) Band Neutrophils % Lymphocytes % (Manual) Monocytes % (Manual) Platelet Estimate PT INR APTT D-Dimer, Quantitative Puncture Site pCO2 pO2 HCO3 ABG pH ABG Total CO2 ABG O2 Saturation ABG Base Excess ABG Hemoglobin ABG Carboxyhemoglobin POC ABG HHb (Measured) ABG Methemoglobin Emeka Test A-a O2 Difference Respiratory Index Hgb O2 Saturation Vent Mode FiO2 Inspiratory BiPAP Expiratory BiPAP Sodium Potassium Chloride Carbon Dioxide Anion Gap BUN Creatinine Est GFR ( Amer) Est GFR (Non-Af Amer) POC Glucose (mg/dL) 99 110 Random Glucose Hemoglobin A1c Calcium Phosphorus Magnesium Total Bilirubin AST ALT Alkaline Phosphatase Total Creatine Kinase 31 L CK-MB (Mass) 0.52 Troponin I < 0.0120 NT-Pro-B Natriuret Pep Total Protein Albumin Globulin Albumin/Globulin Ratio Triglycerides Cholesterol LDL Cholesterol Direct HDL Cholesterol 25-OH Vitamin D Total Procalcitonin Urine Color Urine Clarity Urine pH Ur Specific [place] Urine Protein Urine Glucose (UA) Urine Ketones Urine Blood Urine Nitrate Urine Bilirubin Urine Urobilinogen Ur Leukocyte Esterase Urine WBC (Auto) Urine RBC (Auto) Influenza Typ A,B (EIA)
--- NOTE | 2018-12-18 07:18 | CP.PCM.PN ---
Subjective - Date & Time of Evaluation Date of Evaluation: 12/18/18 Time of Evaluation: 08:00 - Subjective Subjective: Patient examined, sitting comfortably in chair without oxygen. Pt reports he feels well, denies chest pain or SOB. Reports he has been watching his fluid intake as he was drinking fluids and alcohol excessively prior to hospital arriv al. Patient denies complaints including nausea, abdominal pain, LE edema. Objective - Vital Signs/Intake and Output Vital Signs (last 24 hours): Temp Pulse Resp BP Pulse Ox 97.9 F 72 20 108/64 98 12/17/18 23:30 12/17/18 23:30 12/17/18 23:30 12/17/18 23:30 12/17/18 23:30 Intake and Output: 12/18/18 12/18/18 06:59 18:59 Intake Total 880 Output Total 500 Balance 380 - Medications Medications: Current Medications Acetaminophen (Tylenol 325mg Tab) 650 mg PO Q6 PRN PRN Reason: Fever >100.4 F Aspirin (Aspirin Chewable) 81 mg PO DAILY [facility] Last Admin: 12/17/18 11:00 Dose: 81 mg Dextrose (Dextrose 50% Inj) 0 ml IV STAT PRN; Protocol PRN Reason: Hypoglycemia Protocol Dextrose (Glutose 15) 0 gm PO ONCE PRN; Protocol PRN Reason: Hypoglycemia Protocol Famotidine (Pepcid) 20 mg PO BID [facility] Last Admin: 12/17/18 18:17 Dose: 20 mg Glucagon (Glucagen Diagnostic Kit) 0 mg IM STAT PRN; Protocol PRN Reason: Hypoglycemia Protocol Heparin Sodium (Porcine) (Heparin) 5,000 units SC Q8 [facility] Last Admin: 12/18/18 06:08 Dose: 5,000 units Dextrose (Dextrose 5% In Water 1000 Ml) 1,000 mls @ 0 mls/hr IV .Q0M PRN; Prot ocol PRN Reason: Hypoglycemia Protocol Sodium Chloride (Sodium Chloride 0.45%) 1,000 mls @ 60 mls/hr IV .[id number] [facility] Last Admin: 12/17/18 12:00 Dose: 60 mls/hr Influenza Virus Vaccine (Flucelvax Quad [id number] Syr) 60 mcg IM .ONCE ONE Stop: 12/18/18 10:01 Insulin Human Regular (Novolin R) 0 unit SC ACHS [facility]; Protocol Last Admin: 12/17/18 21:42 Dose: Not Given Pneumococcal Polyvalent Vaccine (Pneumovax 23 Vaccine) 0.5 ml IM .ONCE ONE Stop: 12/18/18 10:01 Rosuvastatin Calcium (Crestor) 5 mg PO HS [facility] Last Admin: 12/17/18 21:19 Dose: 5 mg - Labs Labs: 12/17/18 02:19 12/17/18 02:19 PT 13.7 SECONDS (9.7-12.2) H 12/17/18 06:15 INR 1.3 12/17/18 06:15 APTT 35 SECONDS (21-34) H 12/17/18 06:15 - Constitutional Appears: Non-toxic, No Acute Distress - Head Exam Head Exam: ATRAUMATIC, NORMAL INSPECTION, NORMOCEPHALIC - Eye Exam Eye Exam: EOMI, Normal appearance - ENT Exam ENT Exam: Mucous Membranes Moist, Normal Exam - Neck Exam Neck Exam: Normal Inspection - Respiratory Exam Respiratory Exam: Decreased Breath Sounds, NORMAL BREATHING PATTERN. absent: Respiratory Distress - Cardiovascular Exam Cardiovascular Exam: REGULAR RHYTHM, +S1, +S2. absent: Tachycardia - GI/Abdominal Exam GI & Abdominal Exam: Soft, Normal Bowel Sounds. absent: Distended, Tenderness Additional comments: obese abdomen - Extremities Exam Extremities Exam: Normal Inspection. absent: Calf Tenderness, Pedal Edema - Neurological Exam Neurological Exam: Alert, Awake, Oriented x3 - Psychiatric Exam Psychiatric exam: Normal Affect, Normal Mood - Skin Skin Exam: Dry, Intact, Normal Color, Warm Assessment and Plan - Assessment and Plan (Free Text) Assessment: 58 year old male w/ pmhx of CHF, HTN, DM2 admitted for evaluation of acute onset chest pain, SOB Plan: Chest Pain R/O ACS - Cardiology consulted - Dr. Hazel Management: - RUBEN x 3 negative - EKG: LVH noted - ECHO ordered - continue home ASA 81mg po qd, added Crestor 5mg po hs - Will follow up with Cardio recs Hx of Heart Failure Imaging: - ECHO ordered - CXR(12/17): Upper lobe granulomatous changes. Moderate venous congestion. Cardiomegaly. Enlarged ectatic aorta. Management: - BNP 1280, no prior to compare - Will not diurese as patient is clinically dry - monitor I/Os Febrile, Leukocytosis, Hypotensive SIRS Criteria Imaging: - CXR(12/17): moderate venous congestion. Bibasilar airspace opacities. B/L hilar prominence Management: - UA - clean, UCx ordered - Blood Cultures, no growth prelim - Flu negative - Procal elevated at 1.46 - Currently off BiPAP - Gentle fluids started, 1/2NS @60; will monitor to prevent fluid overload Hypercalcemia Hx of Hyperparathyroidism? - Ca+: 11.4-->10.9 today Management: - HyperPTH noted, elevated at 140 on (07/2014) - Vitamin D low at 22.6 - F/U repeat PTH, CLEMENTINA, ionized calcium levels Hypertension - Held BP meds in light of hypotension Type 2 DM - Accuchecks ACHS - Hypoglycemia protocol - ISS- Medium, held Metformin - A1C 6.9 - Continue home ASA 81mg po qd Prophylactic Measures - GI PPX: Pepcid 20mg po BID - DVT PPX: SCDs, Heparin 5000 Q8H - HHD Discussed w/ Dr. Booth -Juliana Garza, PGY-1
[2018-12-18 07:26] LABS: BASO % 0.7 % (0.0-2.0); EOS # 0.1 K/uL (0.0-0.7); EOS % 2.3 % (0.0-4.0); HEMOGLOBIN 12.5 g/dL (12.0-18.0); LYMPH # 1.1 K/uL (1.0-4.3); LYMPH % 18.3 % (20.0-40.0); MEAN CELL VOLUME 73.1 fL (80.0-94.0); MEAN CORPUSCULAR HEMOGLOBIN 22.6 pg (27.0-31.0); MEAN CORPUSCULAR HGB CONC 30.9 g/dL (33.0-37.0); MONO # 0.5 K/uL (0.0-0.8); MONO % 8.6 % (0.0-10.0); NEUT # 4.2 K/uL (1.8-7.0); NEUT % 70.1 % (50.0-75.0); RBC 5.55 Mil/uL (4.40-5.90); RED CELL DISTRIBUTION WIDTH 16.3 % (11.5-14.5)
[2018-12-18] MEDS: (Novolin R) Insulin Human Regular 100 units/ml vial SC SCH ×4 (07:30→21:57)
[2018-12-18 08:19] LABS: ALB/GLOB RATIO 1.2 (1.0-2.1); ALBUMIN 3.5 g/dL (3.5-5.0); ALT/SGPT 27 U/L (21-72); AST/SGOT 24 U/L (17-59); BLOOD UREA NITROGEN 23 mg/dL (9-20); CALCIUM 10.9 mg/dl (8.6-10.4); GFR NON-AFRICAN AMERICAN > 60
[2018-12-18] MEDS ORDERED: Pneumococcal 23-Valent Vaccine IM ONE (10:00)
[2018-12-18] MEDS ORDERED: Influenza Vaccine 60 mcg/0.5 mL SYR (4YR UP) IM ONE (10:00)
[2018-12-18 17:12] VITALS: RESP 20
[2018-12-18] MEDS: Sodium Chloride 0.45% 1,000 ML IV SCH (21:13)
--- NOTE | 2018-12-18 23:02 | CP.PCM.PN ---
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 Present on Admission - Present on Admission Any Indicators Present on Admission: No Review of Systems - Constitutional Constitutional: Chills - EENT Eyes: absent: Blurred Vision - Cardiovascular Cardiovascular: Chest Pain, Dyspnea - Respiratory Respiratory: absent: Cough, Chest Congestion - Gastrointestinal Gastrointestinal: absent: Diarrhea, Nausea, Vomiting - Genitourinary Genitourinary: absent: Dysuria Physical Exam - Constitutional Appears: Non-toxic, No Acute Distress - Head Exam Head Exam: ATRAUMATIC, NORMAL INSPECTION, NORMOCEPHALIC - Eye Exam Eye Exam: EOMI, Normal appearance - ENT Exam ENT Exam: Mucous Membranes Dry, Normal Exam - Neck Exam Neck exam: Positive for: Normal Inspection - Respiratory Exam Respiratory Exam: NORMAL BREATHING PATTERN. absent: Wheezes Additional comments: on BiPAP - Cardiovascular Exam Cardiovascular Exam: REGULAR RHYTHM, +S1, +S2. absent: Tachycardia - GI/Abdominal Exam GI & Abdominal Exam: Normal Bowel Sounds, Soft. absent: Tenderness - Extremities Exam Extremities exam: Positive for: normal capillary refill. Negative for: calf tenderness, pedal edema - Neurological Exam Neurological exam: Alert, Oriented x3 - Psychiatric Exam Psychiatric exam: Normal Affect, Normal Mood - Skin Skin Exam: Dry, Intact, Normal Color, Warm Additional comments: skin diffusely dry Objective - Vital Signs/Intake and Output Vital Signs (last 24 hours): Temp Pulse Resp BP Pulse Ox 97.5 F L 76 20 143/91 H 98 12/18/18 15:15 12/18/18 16:07 12/18/18 15:15 12/18/18 15:15 12/18/18 15:15 Intake and Output: 12/18/18 12/19/18 18:59 06:59 Intake Total 480 Output Total 600 Balance -120 - Medications Medications: Current Medications Acetaminophen (Tylenol 325mg Tab) 650 mg PO Q6 PRN PRN Reason: Fever >100.4 F Aspirin (Aspirin Chewable) 81 mg PO DAILY [facility] Last Admin: 12/18/18 09:55 Dose: 81 mg Dextrose (Dextrose 50% Inj) 0 ml IV STAT PRN; Protocol PRN Reason: Hypoglycemia Protocol Dextrose (Glutose 15) 0 gm PO ONCE PRN; Protocol PRN Reason: Hypoglycemia Protocol Famotidine (Pepcid) 20 mg PO BID [facility] Last Admin: 12/18/18 17:43 Dose: 20 mg Glucagon (Glucagen Diagnostic Kit) 0 mg IM STAT PRN; Protocol PRN Reason: Hypoglycemia Protocol Heparin Sodium (Porcine) (Heparin) 5,000 units SC Q8 [facility] Last Admin: 12/18/18 21:12 Dose: 5,000 units Dextrose (Dextrose 5% In Water 1000 Ml) 1,000 mls @ 0 mls/hr IV .Q0M PRN; Protocol PRN Reason: Hypoglycemia Protocol Sodium Chloride (Sodium Chloride 0.45%) 1,000 mls @ 60 mls/hr IV .[id number] [facility] Last Admin: 12/18/18 21:13 Dose: Not Given Insulin Human Regular (Novolin R) 0 unit SC ACHS [facility]; Protocol Last Admin: 12/18/18 21:57 Dose: Not Given Rosuvastatin Calcium (Crestor) 5 mg PO HS [facility] Last Admin: 12/18/18 21:12 Dose: 5 mg - Labs Labs: 12/18/18 07:03 12/18/18 07:03 PT 13.7 SECONDS (9.7-12.2) H 12/17/18 06:15 INR 1.3 12/17/18 06:15 APTT 35 SECONDS (21-34) H 12/17/18 06:15 Assessment and Plan - Assessment and Plan (Free Text) Assessment: 58 year old male with pmhx CHF, HTN, DM2 admitted for evaluation of acute onset chest pain and SOB Plan: Chest pain, r/o ACS Monitor on telemetry EKG: LVH, QRS widening with repolarization abnormality F/U RUBEN, first troponin negative f/u hgb a1c f/u lipid panel ASA 81mg start crestor 5mg po HS SOB r/o CHF exacerbation pBNP 1280 on admission BiPAP prn I/Os r/o PE d-dimer <200 Hypercalcemia 11.4 on admission PTH(2013) elevated at 140 f/u PTH ordered f/u ionized Ca+ f/u Vit D f/u LCEMENTINA level NS @75 Fever/Leukocytosis f/u blood cx f/u cxr report Tylenol 650mg po q6 prn DM2 hold home metformin f/u hgb a1c ISS-medium accuchecks ACHS hypoglycemia protocol HTN hold home meds pt hypotensive likely 2/2 dehydration NS @75 Ppx: heparin 5000 q8 pepcid 20mg po BID ECHO shows CMP with EF <40% Cardiac cath at 4.30pm tomorrow NPO after lunch (After 12.30 noon)
[2018-12-19] MEDS: Sodium Chloride 0.45% 1,000 ML IV SCH ×2 (00:05→13:15)
[2018-12-19 07:22] LABS: BASO % 0.5 % (0.0-2.0); EOS # 0.2 K/uL (0.0-0.7); EOS % 2.7 % (0.0-4.0); HEMOGLOBIN 13.3 g/dL (12.0-18.0); LYMPH # 1.3 K/uL (1.0-4.3); LYMPH % 19.8 % (20.0-40.0); MEAN CELL VOLUME 73.6 fL (80.0-94.0); MEAN CORPUSCULAR HEMOGLOBIN 22.8 pg (27.0-31.0); MEAN PLATELET VOLUME 12.1 fL (7.2-11.7); MONO # 0.7 K/uL (0.0-0.8); MONO % 10.3 % (0.0-10.0); NEUT # 4.5 K/uL (1.8-7.0); NEUT % 66.7 % (50.0-75.0); NRBC % 0.2 % (0.0-2.0); RBC 5.83 Mil/uL (4.40-5.90); WHITE BLOOD COUNT 6.8 K/uL (4.8-10.8)
[2018-12-19] MEDS: (Novolin R) Insulin Human Regular 100 units/ml vial SC SCH ×4 (07:37→22:38)
[2018-12-19 08:10] LABS: ALB/GLOB RATIO 1.2 (1.0-2.1); ALBUMIN 3.8 g/dL (3.5-5.0); ALT/SGPT 26 U/L (21-72); AST/SGOT 25 U/L (17-59); BLOOD UREA NITROGEN 18 mg/dL (9-20); CALCIUM 11.8 mg/dl (8.6-10.4); GFR NON-AFRICAN AMERICAN > 60
--- NOTE | 2018-12-19 14:34 | CP.PCM.PN ---
Subjective - Date & Time of Evaluation Date of Evaluation: 12/19/18 Time of Evaluation: 14:32 - Subjective Subjective: DR BOOTH SERVICE Pt s/e at bedside, denies any acute events overnight, denies cp sob fc nv, for cath today w Dr Hazel, understands and agrees with plan. Objective - Vital Signs/Intake and Output Vital Signs (last 24 hours): Temp Pulse Resp BP Pulse Ox 98.5 F 89 20 147/90 99 12/19/18 07:45 12/19/18 12:03 12/19/18 07:45 12/19/18 07:45 12/19/18 07:45 Intake and Output: 12/19/18 12/19/18 06:59 18:59 Output Total 900 Balance -900 - Medications Medications: Current Medications Acetaminophen (Tylenol 325mg Tab) 650 mg PO Q6 PRN PRN Reason: Fever >100.4 F Aspirin (Aspirin Chewable) 81 mg PO DAILY [facility] Last Admin: 12/19/18 10:36 Dose: 81 mg Dextrose (Dextrose 50% Inj) 0 ml IV STAT PRN; Protocol PRN Reason: Hypoglycemia Protocol Dextrose (Glutose 15) 0 gm PO ONCE PRN; Protocol PRN Reason: Hypoglycemia Protocol Famotidine (Pepcid) 20 mg PO BID [facility] Last Admin: 12/19/18 10:36 Dose: 20 mg Glucagon (Glucagen Diagnostic Kit) 0 mg IM STAT PRN; Protocol PRN Reason: Hypoglycemia Protocol Heparin Sodium (Porcine) (Heparin) 5,000 units SC Q8 [facility] Last Admin: 12/19/18 13:21 Dose: 5,000 units Dextrose (Dextrose 5% In Water 1000 Ml) 1,000 mls @ 0 mls/hr IV .Q0M PRN; Protocol PRN Reason: Hypoglycemia Protocol Sodium Chloride (Sodium Chloride 0.45%) 1,000 mls @ 60 mls/hr IV .[id number] [facility] Last Admin: 12/19/18 00:05 Dose: 60 mls/hr Insulin Human Regular (Novolin R) 0 unit SC ACHS [facility]; Protocol Last Admin: 12/19/18 12:33 Dose: Not Given Rosuvastatin Calcium (Crestor) 5 mg PO HS [facility] Last Admin: 12/18/18 21:12 Dose: 5 mg - Labs Labs: 12/19/18 07:14 12/19/18 07:14 PT 13.7 SECONDS (9.7-12.2) H 12/17/18 06:15 INR 1.3 12/17/18 06:15 APTT 35 SECONDS (21-34) H 12/17/18 06:15 - Additional Findings Additional findings: - Constitutional Appears: Non-toxic, No Acute Distress - Head Exam Head Exam: ATRAUMATIC, NORMAL INSPECTION, NORMOCEPHALIC - Eye Exam Eye Exam: EOMI, Normal appearance - ENT Exam ENT Exam: Mucous Membranes Moist, Normal Exam - Neck Exam Neck Exam: Normal Inspection - Respiratory Exam Respiratory Exam: Decreased Breath Sounds, NORMAL BREATHING PATTERN. absent: Respiratory Distress - Cardiovascular Exam Cardiovascular Exam: REGULAR RHYTHM, +S1, +S2. absent: Tachycardia - GI/Abdominal Exam GI & Abdominal Exam: Soft, Normal Bowel Sounds. absent: Distended, Tenderness Additional comments: obese abdomen - Extremities Exam Extremities Exam: Normal Inspection. absent: Calf Tenderness, Pedal Edema - Neurological Exam Neurological Exam: Alert, Awake, Oriented x3 - Psychiatric Exam Psychiatric exam: Normal Affect, Normal Mood - Skin Skin Exam: Dry, Intact, Normal Color, Warm Assessment and Plan - Assessment and Plan (Free Text) Assessment: 58 year old male w/ pmhx of CHF, HTN, DM2 admitted for evaluation of acute onset chest pain, SOB Plan: Chest Pain R/O ACS - Cardiology consulted - Dr. Hazel cath today f/u results Management: - RUBEN x 3 negative - EKG: LVH noted - ECHO ordered - continue home ASA 81mg po qd, added Crestor 5mg po hs - Will follow up with Cardio recs Hx of Heart Failure Imaging: - ECHO ordered - CXR(12/17): Upper lobe granulomatous changes. Moderate venous congestion. Cardiomegaly. Enlarged ectatic aorta. Management: - BNP 1280, no prior to compare - Will not diurese as patient is clinically dry - monitor I/Os Febrile, Leukocytosis, Hypotensive SIRS Criteria Imaging: - CXR(12/17): moderate venous congestion. Bibasilar airspace opacities. B/L hilar prominence Management: - UA - clean, UCx ordered - Blood Cultures, no growth prelim - Flu negative - Procal elevated at 1.46 - Currently off BiPAP - Gentle fluids started, 1/2NS @60; will monitor to prevent fluid overload Hypercalcemia Hx of Hyperparathyroidism? - Ca+: 11.4-->10.9 ->11.8today Management: - HyperPTH noted, elevated at 140 on (07/2014) - Vitamin D low at 22.6 - 111 PTHw/Ca, ionized calcium levels 10.8, CLEMENTINA 37 Hypertension - Held BP meds in light of hypotension Type 2 DM - Accuchecks ACHS - Hypoglycemia protocol - ISS- Medium, held Metformin - A1C11.8 - Continue home ASA 81mg po qd Prophylactic Measures - GI PPX: Pepcid 20mg po BID - DVT PPX: SCDs, Heparin 5000 Q8H - HHD Discussed w/ Dr. Booth
[2018-12-19] MEDS ORDERED: Verapamil 2 ML ONE (16:56)
[2018-12-19] MEDS ORDERED: Midazolam 2 MG/2 ML VIAL ONE (16:57)
[2018-12-19] MEDS ORDERED: Iodixanol 320 MG/ML 200 ML BOTTLE IV ONE (16:58)
[2018-12-19] MEDS ORDERED: Nitroglycerin 50mg in D5W 50 MG/250 ML BOTTLE IV ONE (16:58)
[2018-12-19] MEDS ORDERED: Iodixanol 320 MG/ML 100 ML BOTTLE IV ONE (16:58)
--- NOTE | 2018-12-19 22:25 | CARD ---
APPROVED REPORT Date of service: 12/18/2018 EXAM: Two-dimensional and M-mode echocardiogram with Doppler and color Doppler. Other Information Quality : GoodRhythm : INDICATION Dyspnea Cardiac Disease: CAD Congestive Heart Failure RISK FACTORS Hypertension Diabetes 2D DIMENSIONS IVSd0.9 (0.7-1.1cm)LVDd6.1 (3.9-5.9cm) PWd1.0 (0.7-1.1cm)LA Tqefff68 (18-58mL) LVDs5.2 (2.5-4.0cm)FS (%) 14.7 % LVEF (%)30.6 (>50%)LVEF (Ramirez's)34.59 % M-Mode DIMENSIONS Left Atrium (MM)4.06 (2.5-4.0cm)IVSd0.98 (0.7-1.1cm) Aortic Root3.65 (2.2-3.7cm)LVDd6.87 (4.0-5.6cm) Aortic Cusp Exc.2.11 (1.5-2.0cm)PWd0.88 (0.7-1.1cm) FS (%) 18 %LVDs5.66 (2.0-3.8cm) LVEF (%)35 (>50%) Aortic Valve AI P 1/2 Arby113ae Mitral Valve MV E Yvtuziox607.7cm/sMV A Vqeduymh57.4cm/sE/A ratio2.8 DPGE567.77 cm/s TDI Lateral E' Peak V6.03cm/sMedial E' Peak V7.00cm/sE/Lateral E'18.5 E/Medial E'16.0 Tricuspid Valve TR Peak Jsxzoaay866jf/sTR Peak Gr.[id number] LEFT VENTRICLE The Left Ventricle is moderately dilated. There is normal left ventricular wall thickness. Left ventricle systolic function is moderately to severely impaired. The Ejection Fraction is 30-35%. Dilated cardiomyopathy. There is global hypokinesis of the left ventricle. The left ventricular diastolic function is normal. RIGHT VENTRICLE The right ventricle is normal size. There is normal right ventricular wall thickness. Systolic function is moderately reduced. ATRIA The left atrium is mildly dilated. The right atrium size is normal. The interatrial septum is intact with no evidence for an atrial septal defect. AORTIC VALVE The aortic valve is normal in structure. There is mild aortic regurgitation. There is no aortic valvular stenosis. MITRAL VALVE The mitral valve is normal in structure. There is no evidence of mitral valve prolapse. There is no mitral valve stenosis. Mitral regurgitation is mild. TRICUSPID VALVE The tricuspid valve is normal in structure. There is mild tricuspid regurgitation. Right ventricular systolic pressure is estimated at 40-50 mmHg. There is mild-moderate pulmonary hypertension. PULMONIC VALVE The pulmonic valve is not well visualized. There is mild pulmonic valvular regurgitation. GREAT VESSELS The aortic root is normal in size. PERICARDIAL EFFUSION There is no significant pericardial effusion. <Conclusion> Left ventricle systolic function is moderately to severely impaired. The Ejection Fraction is 30-35%. Dilated cardiomyopathy. There is mild aortic regurgitation. Mitral regurgitation is mild. There is mild tricuspid regurgitation. There is mild-moderate pulmonary hypertension. There is mild pulmonic valvular regurgitation.
[2018-12-20] MEDS: (Novolin R) Insulin Human Regular 100 units/ml vial SC SCH ×3 (07:15→17:11)
[2018-12-20 09:27] VITALS: O2SAT 99
--- NOTE | 2018-12-20 16:28 | CP.PCM.PN ---
Subjective - Date & Time of Evaluation Date of Evaluation: 12/20/18 Time of Evaluation: 07:50 - Subjective Subjective: Patient examined with in room. Objective - Vital Signs/Intake and Output Vital Signs (last 24 hours): Temp Pulse Resp BP Pulse Ox 97.9 F 68 20 126/76 99 12/20/18 07:00 12/20/18 07:36 12/20/18 07:00 12/20/18 07:00 12/20/18 07:00 Intake and Output: 12/20/18 12/20/18 06:59 18:59 Intake Total 490 Output Total 250 Balance 240 - Medications Medications: Current Medications Acetaminophen (Tylenol 325mg Tab) 650 mg PO Q6 PRN PRN Reason: Fever >100.4 F Aspirin (Aspirin Chewable) 81 mg PO DAILY [facility] Last Admin: 12/20/18 09:45 Dose: 81 mg Dextrose (Dextrose 50% Inj) 0 ml IV STAT PRN; Protocol PRN Reason: Hypoglycemia Protocol Dextrose (Glutose 15) 0 gm PO ONCE PRN; Protocol PRN Reason: Hypoglycemia Protocol Famotidine (Pepcid) 20 mg PO BID [facility] Last Admin: 12/20/18 09:45 Dose: 20 mg Glucagon (Glucagen Diagnostic Kit) 0 mg IM STAT PRN; Protocol PRN Reason: Hypoglycemia Protocol Insulin Human Regular (Novolin R) 0 unit SC [facility]; Protocol Last Admin: 12/20/18 11:30 Dose: Not Given Rosuvastatin Calcium (Crestor) 5 mg PO HS [facility] Last Admin: 12/19/18 22:37 Dose: 5 mg - Labs Labs: 12/19/18 07:14 12/19/18 07:14 PT 13.7 SECONDS (9.7-12.2) H 12/17/18 06:15 INR 1.3 12/17/18 06:15 APTT 35 SECONDS (21-34) H 12/17/18 06:15
[2018-12-20 16:39] VITALS: BP 123/75; PULSE 66; TEMP 98.3
--- NOTE | 2018-12-20 17:52 | CP.PCM.DIS ---
Provider - Provider Date of Admission: 12/17/18 03:48 Attending physician: Eligio Booth Jr, MD Primary care physician: Dr. Booth Consults: 12/17/18 08:00 Cardiology Consult Routine Comment: Consulting Provider: Ant Hazel Consulting Physician: Ant Hazel Reason for Consult: your pt w/ chest pain Time Spent in preparation of Discharge (in minutes): 30 Diagnosis - Discharge Diagnosis (1) Congestive heart failure Status: Chronic Hospital Course - Lab Results Lab Results: Micro Results 12/17/18 03:32 Blood Blood Culture - Preliminary NO GROWTH AFTER 3 DAYS 12/17/18 03:32 Blood Blood Culture - Preliminary NO GROWTH AFTER 3 DAYS 12/18/18 07:16 Urine,Clean Catch Urine Culture - Final Gram Positive Cocci Most Recent Lab Values WBC 6.8 K/uL (4.8-10.8) 12/19/18 07:14 RBC 5.83 Mil/uL (4.40-5.90) 12/19/18 07:14 Hgb 13.3 g/dL (12.0-18.0) 12/19/18 07:14 Hct 42.9 % (35.0-51.0) 12/19/18 07:14 MCV 73.6 fL (80.0-94.0) L 12/19/18 07:14 MCH 22.8 pg (27.0-31.0) L 12/19/18 07:14 MCHC 31.0 g/dL (33.0-37.0) L 12/19/18 07:14 RDW 16.0 % (11.5-14.5) H 12/19/18 07:14 Plt Count 167 K/uL (130-400) 12/19/18 07:14 MPV 12.1 fL (7.2-11.7) H 12/19/18 07:14 Neut % (Auto) 66.7 % (50.0-75.0) 12/19/18 07:14 Lymph % (Auto) 19.8 % (20.0-40.0) L 12/19/18 07:14 [place] % (Auto) 10.3 % (0.0-10.0) H 12/19/18 07:14 Eos % (Auto) 2.7 % (0.0-4.0) 12/19/18 07:14 Baso % (Auto) 0.5 % (0.0-2.0) 12/19/18 07:14 Neut # (Auto) 4.5 K/uL (1.8-7.0) 12/19/18 07:14 Lymph # (Auto) 1.3 K/uL (1.0-4.3) 12/19/18 07:14 [place] # (Auto) 0.7 K/uL (0.0-0.8) 12/19/18 07:14 Eos # (Auto) 0.2 K/uL (0.0-0.7) 12/19/18 07:14 Baso # (Auto) 0.0 K/uL (0.0-0.2) 12/19/18 07:14 Neutrophils % (Manual) 88 % (50-75) H 12/17/18 02:19 Band Neutrophils % 1 % (0-2) 12/17/18 02:19 Lymphocytes % (Manual) 6 % (20-40) L 12/17/18 02:19 Monocytes % (Manual) 5 % (0-10) 12/17/18 02:19 Differential Comment 12/19/18 07:14 Platelet Estimate Normal (NORMAL) 12/17/18 02:19 PT 13.7 SECONDS (9.7-12.2) H 12/17/18 06:15 INR 1.3 12/17/18 06:15 APTT 35 SECONDS (21-34) H 12/17/18 06:15 D-Dimer, Quantitative < 200 ng/mlDDU (0-243) 12/17/18 02:19 Puncture Site R rad 12/17/18 02:20 pCO2 33 mm/Hg (35-45) L 12/17/18 02:20 pO2 114 mm/Hg (80-100) H 12/17/18 02:20 HCO3 21.7 mmol/L (21-28) 12/17/18 02:20 ABG pH 7.39 (7.35-7.45) 12/17/18 02:20 ABG Total CO2 21.0 mmol/L (22-28) L 12/17/18 02:20 ABG O2 Saturation 99.6 % (95-98) H 12/17/18 02:20 ABG Base Excess -4.1 mmol/L (-2.0-3.0) L 12/17/18 02:20 ABG Hemoglobin 13.0 g/dL (11.7-17.4) 12/17/18 02:20 ABG Carboxyhemoglobin 1.9 % (0.5-1.5) H 12/17/18 02:20 POC ABG HHb (Measured) 0.4 % (0.0-5.0) 12/17/18 02:20 ABG Methemoglobin 1.7 % (0.0-3.0) 12/17/18 02:20 Emeka Test Pos 12/17/18 02:20 A-a O2 Difference 130.0 mm/Hg 12/17/18 02:20 Respiratory Index 1.1 12/17/18 02:20 Hgb O2 Saturation 96.0 % (95.0-98.0) 12/17/18 02:20 Vent Mode Bipap 12/17/18 02:20 FiO2 40.0 % 12/17/18 02:20 Inspiratory BiPAP 12 12/17/18 02:20 Expiratory BiPAP 6 12/17/18 02:20 Sodium 136 mmol/L (132-148) 12/19/18 07:14 Potassium 4.4 mmol/L (3.6-5.2) 12/19/18 07:14 Chloride 107 mmol/L (98-107) 12/19/18 07:14 Carbon Dioxide 20 mmol/L (22-30) L 12/19/18 07:14 Anion Gap 13 (10-20) 12/19/18 07:14 BUN 18 mg/dL (9-20) 12/19/18 07:14 Creatinine 1.1 mg/dL (0.8-1.5) 12/19/18 07:14 Est GFR ( Amer) > 60 12/19/18 07:14 Est GFR (Non-Af Amer) > 60 12/19/18 07:14 POC Glucose (mg/dL) 115 mg/dL (65-110) H 12/20/18 16:05 Random Glucose 104 mg/dL (75-110) 12/19/18 07:14 Hemoglobin A1c 6.9 % (4.2-6.5) H 12/17/18 06:15 Calcium 11.8 mg/dl (8.6-10.4) H 12/19/18 07:14 Ionized Calcium 6.0 mg/dL (4.80-5.60) H 12/17/18 07:59 Phosphorus 2.5 mg/dL (2.5-4.5) 12/18/18 07:03 Magnesium 1.6 mg/dL (1.6-2.3) 12/18/18 07:03 Total Bilirubin 0.3 mg/dL (0.2-1.3) 12/19/18 07:14 AST 25 U/L (17-59) 12/19/18 07:14 ALT 26 U/L (21-72) 12/19/18 07:14 Alkaline Phosphatase 109 U/L (38-126) 12/19/18 07:14 Total Creatine Kinase 31 U/L (55-170) L 12/17/18 14:07 CK-MB (Mass) 0.52 ng/mL (0.0-3.38) 12/17/18 14:07 Troponin I < 0.0120 ng/mL (0.00-0.120) 12/17/18 14:07 NT-Pro-B Natriuret Pep 1280 pg/mL (0-900) H 12/17/18 03:08 Total Protein 6.8 g/dL (6.3-8.3) 12/19/18 07:14 Albumin 3.8 g/dL (3.5-5.0) 12/19/18 07:14 Globulin 3.0 gm/dL (2.2-3.9) 12/19/18 07:14 Albumin/Globulin Ratio 1.2 (1.0-2.1) 12/19/18 07:14 Triglycerides 138 mg/dL (0-149) 12/17/18 07:59 Cholesterol 144 mg/dL (0-199) 12/17/18 07:59 LDL Cholesterol Direct 84 mg/dL (0-129) 12/17/18 07:59 HDL Cholesterol 29 mg/dL (30-70) L 12/17/18 07:59 Angiotensin Convert Enz 37 U/L (9-67) 12/17/18 07:59 25-OH Vitamin D Total 22.6 NG/ML (30.0-100.0) L 12/17/18 07:59 Procalcitonin 1.46 NG/ML (0.19-0.49) H 12/17/18 10:03 Calcium (PTH Intact) 10.8 mg/dL (8.6-10.3) H 12/17/18 07:59 PTH w/Ion &Tot Calcium 111 pg/mL (14-64) H 12/17/18 07:59 Urine Color Straw (YELLOW) 12/17/18 02:03 Urine Clarity Clear (Clear) 12/17/18 02:03 Urine pH 5.0 (5.0-8.0) 12/17/18 02:03 Ur Specific [place] 1.008 (1.003-1.030) 12/17/18 02:03 Urine Protein Negative mg/dL (NEGATIVE) 12/17/18 02:03 Urine Glucose (UA) Normal mg/dL (Normal) 12/17/18 02:03 Urine Ketones Negative mg/dL (NEGATIVE) 12/17/18 02:03 Urine Blood Negative (NEGATIVE) 12/17/18 02:03 Urine Nitrate Negative (NEGATIVE) 12/17/18 02:03 Urine Bilirubin Negative (NEGATIVE) 12/17/18 02:03 Urine Urobilinogen Normal mg/dL (0.2-1.0) 12/17/18 02:03 Ur Leukocyte Esterase Neg [place]/uL (Negative) 12/17/18 02:03 Urine WBC (Auto) < 1 /hpf (0-5) 12/17/18 02:03 Urine RBC (Auto) < 1 /hpf (0-3) 12/17/18 02:03 C. difficile Ag & Toxin Negative (NEGATIVE) 12/19/18 14:38 Influenza Typ A,B (EIA) Negative for flu a/b (NEGATIVE) 12/17/18 06:12 - Hospital Course Hospital Course: Patient's complaints of chest pain and SOB evaluated in ED. Vitals revealed pt febrile and hypotensive on admission. Labs revealed mild leukocytosis, hypercalcemia and hyperglycemia. D-dimer<200. Troponins negative x3, BNP elevated at 1280. EKG revealed NSR, possible left atrial enlargement, LVH with QRS widening and repolarization abnormality. Cardiology, Dr. Hazel consulted. Pt admitted to telemetry. Echo revealed LV systolic dysfunction, EF 30-35%, dilated cardiomyopathy with mild pulmonic, mitral, tricuspid, aortic regurg. Pt subsequently underwent cardiac cath with recommendations that pt be medically managed and discharged with life vest. Pt discharged in stable condition with full resolution of symptoms. HPI on admission: "Patient is a 58 year old male w/ pmhx of CHF, HTN, DM2 who presents to the ED for evaluation of acute onset chest pain with associated SOB just prior to arrival. Pt's took his BP at home during episode and reports a reading of 222/100s, and administered aspirin 324mg at home. Pt reports he was recently a dmitted 12/05/18 at [facility] with similar symptoms and was told he suffered damage to his heart, but is not sure of the diagnosis. Pt was given nitro, lasix by EMS en route, and was placed on BiPAP on arrival. Pt reports chills during episode, and was febrile at 101.3 in ED. Pt reports resolution of symptoms currently while on BiPAP. Denies recent illness, LE pain/edema, cough, nausea, diarrhea." Refer to EMR for further details Discharge Exam - Additional Findings Additional findings: - Constitutional Appears: Non-toxic, No Acute Distress - Head Exam Head Exam: ATRAUMATIC, NORMAL INSPECTION, NORMOCEPHALIC - Eye Exam Eye Exam: EOMI, Normal appearance - ENT Exam ENT Exam: Mucous Membranes Moist, Normal Exam - Neck Exam Neck Exam: Normal Inspection - Respiratory Exam Respiratory Exam: Decreased Breath Sounds, NORMAL BREATHING PATTERN. absent: Respiratory Distress - Cardiovascular Exam Cardiovascular Exam: REGULAR RHYTHM, +S1, +S2. absent: Tachycardia - GI/Abdominal Exam GI & Abdominal Exam: Soft, Normal Bowel Sounds. absent: Distended, Tenderness Additional comments: obese abdomen - Extremities Exam Extremities Exam: Normal Inspection. absent: Calf Tenderness, Pedal Edema - Neurological Exam Neurological Exam: Alert, Awake, Oriented x3 - Psychiatric Exam Psychiatric exam: Normal Affect, Normal Mood - Skin Discharge Plan - Discharge Medications Prescriptions: Clopidogrel Bisulfate [Plavix] 75 mg PO DAILY #30 tablet Furosemide [Lasix] 20 mg PO DAILY #30 tablet Rosuvastatin Calcium [Crestor] 5 mg PO HS #30 tab - Follow Up Plan Condition: STABLE Disposition: HOME/ ROUTINE Instructions: Heart Failure, Adult (DC), Low Salt Diet, Fluid Restricted Diet, Clopidogrel, Furosemide, Rosuvastatin, Going Home on Blood Thinners Additional Instructions: Patient is stable for discharge home. Patient was evaluated for complaints of acute onset chest pain with shortness of breath. Patient is instructed to follow up with laborer tin can, Dr. Hazel within 1 month of discharge. Patient instructed to follow up with Dr. Booth within 1 month of discharge. Patient instructed to continue all home medications taken prior to arrival in the emergency department, including aspirin, metformin, metoprolol and cozaar. Patient will also be given prescriptions for additional medication: Plavix 75mg po daily Lasix 20mg po daily Crestor 5mg po daily Patient will also be discharged with a life vest to be used as instructed. Patient advised to take caution as plavix may cause prolonged or excessive bleeding. Patient instructed to restrict fluid and sodium intake to avoid a CHF exacerbation Patient instructed to return to the ED immediately with any worsening of symptoms or uncontrolled bleeding. Referrals: Ant Hazel MD [Staff Provider] -
== END 2018-12-20 20:50 | disposition home or self-care (01) | DRG 127 ==
LOC: C.ER 01:41 → C.9E 03:48 → C.5S 05:46
PROVIDERS: ADMIT Internal Medicine; ATTEND Internal Medicine
PROC: 5A09357 Assistance with Respiratory Ventilation, Less than 24 Consecutive Hours, Continuous Positive Airway Pressure (ICD-10-PCS; principal; 2018-12-17)
DX: I11.0 Hypertensive heart disease with heart failure (principal); I42.0 Dilated cardiomyopathy; E11.65 Type 2 diabetes mellitus with hyperglycemia; I50.9 Heart failure, unspecified; R07.9 Chest pain, unspecified; R06.02 Shortness of breath; I95.9 Hypotension, unspecified; D72.829 Elevated white blood cell count, unspecified; E83.52 Hypercalcemia; E78.00 Pure hypercholesterolemia, unspecified; Z86.010 Personal history of colon polyps; Z87.891 Personal history of nicotine dependence; Z79.84 Long term (current) use of oral hypoglycemic drugs

== ENCOUNTER 2018-12-24 14:09 | Observation (INO) | payer MEDICAID ==
[2018-12-24 14:09] VITALS: BMI 32.8
--- NOTE | 2018-12-24 14:54 | C.PDOC ---
History Of Present Illness 58 y/o male presents to the ED stating I thought my pressure was high but it is not. He complains he felt funny but is now feeling normal. Patient on Lasix 20mg daily x 3 days. 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 Patient denies any associated SOB, chest pain, dizziness, visual changes, headache, or other complaints. Patient on life vest. PMHx is significant for CHF, HTN, DM. Of note, patient was discharged home on 12/20/18 s/p admission for CHF. Echo revealed LV systolic dysfunction, EF 30-35%, dilated cardiomyopathy with mild pulmonic, mitral, tricuspid, aortic regurg. SP cardiac cath with recommendations that pt be medically managed and discharged with life vest. Time Seen by Provider: 12/24/18 14:53 Chief Complaint (Nursing): Medical Clearance History Per: Patient History/Exam Limitations: no limitations Onset/Duration Of Symptoms: Hrs Current Symptoms Are (Timing): Gone Reports Recently: Hospitalized Past Medical History Reviewed: Historical Data, Nursing Documentation, Vital Signs Vital Signs: Last Vital Signs Temp 99.3 F 12/24/18 14:28 Pulse 58 L 12/24/18 14:28 Resp 18 12/24/18 14:28 BP 88/58 L 12/24/18 14:28 Pulse Ox 100 12/24/18 14:28 - Medical History PMH: CHF, Colonic Polyps, Gastritis, HTN, Hypercholesterolemia Denies: Chronic Kidney Disease Surgical History: Endoscopy - [facility] Procedures ASSISTANCE WITH RESPIRATORY VENTILATION, <24 HRS, CPAP (12/17/18) CORONAR ARTERIOGR-2 CATH (09/02/14) ENDOSC POLYPECTOMY OF LG INTEST (12/31/14) ESOPHAGOGASTRODUODENOSCOPY [EGD] W/CLOSED BIOPSY (01/07/15) LEFT HEART CARDIAC CATH (09/02/14) LT HEART ANGIOCARDIOGRAM (09/02/14) Family History: States: Unknown Family Hx - Social History Hx Alcohol Use: No Hx Substance Use: No Review Of Systems Except As Marked, All Systems Reviewed And Found Negative. Constitutional: Positive for: Other ("felt funny"). Negative for: Fever, Chills Eyes: Negative for: Vision Change Cardiovascular: Negative for: Chest Pain, Palpitations Respiratory: Negative for: Shortness of Breath Gastrointestinal: Negative for: Vomiting, Abdominal Pain Musculoskeletal: Negative for: Back Pain Neurological: Negative for: Weakness, Numbness, Change in Speech, Headache, Dizziness Physical Exam - Physical Exam Appears: Non-toxic, No Acute Distress Skin: Warm, Dry, No Rash Head: Atraumatic, Normacephalic Eye(s): bilateral: Normal Inspection, PERRL, EOMI Oral Mucosa: Moist Neck: Normal ROM Chest: Symmetrical Cardiovascular: Rhythm Regular, No Murmur Respiratory: Normal Breath Sounds, No Accessory Muscle Use, Other (NARD) Gastrointestinal/Abdominal: Soft, No Tenderness, No Distention, No Guarding Extremity: Bilateral: Atraumatic, Normal Color And Temperature, Normal ROM Pulses: Left Radial: Normal, Right Radial: Normal Neurological/Psych: Oriented x3, Normal Speech, Normal Cranial Nerves ED Course And Treatment - Laboratory Results Result Diagrams: 12/24/18 15:28 12/24/18 15:28 O2 Sat by Pulse Oximetry: 100 (on RA) Pulse Ox Interpretation: Normal - Radiology CXR: Interpreted by Me CXR Interpretation: Yes: No Acute Disease (NEG, UNCHANGED FROM PRIOR) Progress - Re-Evaluation Re-evaluation Note: 12/24/18 17:27 FEELS BETTER. SBP 101. NEW ONSET ACUTE RENAL INSUF COMPARED TO PRIOR D/W DR WOO ACOSTA OBS 12/24/18 17:28 MED RES NOTIFIED - Data Reviewed Data Reviewed: Lab, Diagnostic imaging, EKG, Old records Medical Decision Making Medical Decision Making: Initial Plan: - Blood work - EKG - Chest x-ray - IV fluids @ 100mls/hr - Reassess Disposition Counseled Patient/Family Regarding: Studies Performed, Diagnosis - Disposition Disposition: HOSPITALIZED Disposition Time: 17:28 Condition: STABLE Forms: [facility] (Jordanian) - POA Present On Arrival: None - Clinical Impression Clinical Impression: Acute renal insufficiency, Hypotension - Scribe Statement The provider has reviewed the documentation as recorded by the Korina Mahajan Provider Attestation: All medical record entries made by the Korina were at my direction and personally dictated by me. I have reviewed the chart and agree that the record accurately reflects my personal performance of the history, physical exam, medical decision making, and the department course for this patient. I have also personally directed, reviewed, and agree with the discharge instructions and disposition.
[2018-12-24] MEDS ORDERED: Sodium Chloride 0.9% 250 ML IV ONE (15:09)
[2018-12-24 15:35] LABS: BASO # 0.1 K/uL (0.0-0.2); BASO % 0.8 % (0.0-2.0); EOS # 0.2 K/uL (0.0-0.7); HEMOGLOBIN 13.4 g/dL (12.0-18.0); LYMPH # 1.5 K/uL (1.0-4.3); LYMPH % 15.5 % (20.0-40.0); MEAN CELL VOLUME 72.5 fL (80.0-94.0); MEAN CORPUSCULAR HEMOGLOBIN 22.6 pg (27.0-31.0); MEAN CORPUSCULAR HGB CONC 31.2 g/dL (33.0-37.0); MEAN PLATELET VOLUME 10.8 fL (7.2-11.7); MONO # 0.7 K/uL (0.0-0.8); MONO % 7.9 % (0.0-10.0); NEUT % 73.8 % (50.0-75.0); NRBC % 0.1 % (0.0-2.0); RBC 5.94 Mil/uL (4.40-5.90); RED CELL DISTRIBUTION WIDTH 15.9 % (11.5-14.5); WHITE BLOOD COUNT 9.5 K/uL (4.8-10.8)
[2018-12-24] MEDS ORDERED: Sodium Chloride 0.9% 1,000 ML ONE (15:38)
[2018-12-24 15:55] LABS: BLOOD UREA NITROGEN 32 mg/dL (9-20); CALCIUM 12.3 mg/dl (8.6-10.4); GFR NON-AFRICAN AMERICAN 39
[2018-12-24 16:00] LABS: B-TYPE NATRIURETIC PEPTIDE 181 pg/mL (0-900)
--- NOTE | 2018-12-24 17:49 | RAD ---
Date of service: 12/24/2018 PROCEDURE: CHEST RADIOGRAPH, 1 VIEW HISTORY: HYPOTENSION COMPARISON: 12/17/2018 FINDINGS: LUNGS: Clear. PLEURA: No pneumothorax or pleural fluid seen. CARDIOVASCULAR: No aortic atherosclerotic calcification present. Normal. OSSEOUS STRUCTURES: No significant abnormalities. VISUALIZED UPPER ABDOMEN: Normal. OTHER FINDINGS: None. IMPRESSION: No active disease.
--- NOTE | 2018-12-24 18:05 | CP.PCM.HP ---
History of Present Illness - History of Present Illness History of Present Illness: History and Physical - Dr Booth's service Patient is a 58 year old male with past medical history of systolic CHF (last EF 30%), HTN, Diabetes Mellitus, recent cardiac catherization who presented to the emergency department for low blood pressure reading. Patient states that he was home this afternoon when he checked his blood pressure and it was "very low". He is unable to recall how low the reading was. States that he was asymptomatic at that time. Patient reports that he is compliant with his medications and took them all at approximately 8am this morning. On initial presentation to the emergency room, patient's blood pressure was 88/58. Patient was recently admitted and underwent cardiac catherization on December 18, 2018. He offers no complaints at this time. Denies headaches, dizziness, cp, palpitation, sob, abdominal pain, urinary symptoms, changes in bowel habits. ED course: NS bolus PMD: Dr Booth Allergies: NKDA Medications: Coreg 25mg PO BID, ASA 81mg PO daily, Plavix 75mg PO daily, Metformin 1000mg PO BID, Cozaar 50mg PO daily, Protonix 40mg PO daily, Crestor Medical History: Systolic CHF, HTN, CAD, DM Type 2 Surgical History: Denies Social History: Denies alcohol, tobacco, drug use Present on Admission - Present on Admission Any Indicators Present on Admission: No Past Patient History - Infectious Disease Hx of Infectious Diseases: None - Past Medical History & Family History Past Medical History?: Yes - Past Social History Smoking Status: Former Smoker - CARDIAC Hx Congestive Heart Failure: Yes Hx Hypercholesterolemia: Yes Hx Hypertension: Yes - PULMONARY Hx Respiratory Disorders: No - NEUROLOGICAL Hx Neurological Disorder: No - HEENT Hx HEENT Problems: No - RENAL Hx Chronic Kidney Disease: No - ENDOCRINE/METABOLIC Hx Endocrine Disorders: Yes Hx Diabetes Mellitus Type 2: Yes - HEMATOLOGICAL/ONCOLOGICAL Hx Blood Disorders: No - INTEGUMENTARY Hx Dermatological Problems: No - MUSCULOSKELETAL/RHEUMATOLOGICAL Hx Falls: No - GASTROINTESTINAL Hx Gastritis: Yes - GENITOURINARY/GYNECOLOGICAL Hx Genitourinary Disorders: No - PSYCHIATRIC Hx Substance Use: No - SURGICAL HISTORY Hx Surgeries: Yes Hx Orthopedic Surgery: Yes (RIGHT ANKLE WITH SCREWS) - ANESTHESIA Hx Anesthesia: Yes Hx Anesthesia Reactions: No Hx Malignant Hyperthermia: No Meds Allergies/Adverse Reactions: Allergies Allergy/AdvReac Type Severity Reaction Status Date / Time No Known Allergies Allergy Verified 12/24/18 14:36 Physical Exam - Constitutional Appears: Non-toxic, No Acute Distress - Head Exam Head Exam: ATRAUMATIC, NORMAL INSPECTION, NORMOCEPHALIC - Eye Exam Eye Exam: EOMI, Normal appearance - ENT Exam ENT Exam: Mucous Membranes Moist - Neck Exam Neck exam: Positive for: Full Rom - Respiratory Exam Respiratory Exam: Clear to Auscultation Bilateral, NORMAL BREATHING PATTERN. absent: Rales, Rhonchi - Cardiovascular Exam Cardiovascular Exam: REGULAR RHYTHM, +S1, +S2 Additional comments: +life vest - GI/Abdominal Exam GI & Abdominal Exam: Normal Bowel Sounds, Soft. absent: Guarding, Rebound, Rigid, Tenderness - Extremities Exam Extremities exam: Positive for: normal inspection, pedal pulses present. Negative for: calf tenderness - Back Exam Back exam: NORMAL INSPECTION - Neurological Exam Neurological exam: Alert, Oriented x3 - Psychiatric Exam Psychiatric exam: Normal Affect, Normal Mood - Skin Skin Exam: Dry, Normal Color, Warm Results - Vital Signs Recent Vital Signs: Last Vital Signs Temp 99.3 F 12/24/18 14:28 Pulse 56 L 12/24/18 16:02 Resp 14 12/24/18 16:02 BP 101/62 12/24/18 16:02 Pulse Ox 100 12/24/18 17:28 - Labs Result Diagrams: 12/24/18 15:28 12/24/18 15:28 Labs: Laboratory Results - last 24 hr 12/24/18 12/24/18 15:28 15:28 WBC 9.5 RBC 5.94 H Hgb 13.4 Hct 43.1 MCV 72.5 L MCH 22.6 L MCHC 31.2 L RDW 15.9 H Plt Count 185 MPV 10.8 Neut % (Auto) 73.8 Lymph % (Auto) 15.5 L [place] % (Auto) 7.9 Eos % (Auto) 2.0 Baso % (Auto) 0.8 Neut # (Auto) 7.0 Lymph # (Auto) 1.5 [place] # (Auto) 0.7 Eos # (Auto) 0.2 Baso # (Auto) 0.1 Sodium 138 Potassium 4.9 Chloride 106 Carbon Dioxide 24 Anion Gap 14 BUN 32 H Creatinine 1.8 H Est GFR ( Amer) 47 Est GFR (Non-Af Amer) 39 Random Glucose 93 Calcium 12.3 H Troponin I < 0.0120 NT-Pro-B Natriuret Pep 181 Assessment & Plan - Assessment and Plan (Free Text) Assessment: Hypotension (asymptomatic) -Stable, afebrile -We will admit to telemetry -EKG on admission showed sinus bradycardia 57 bpm -BPs improved after IV hydration -We will hold Coreg and Lasix at this time -Cozaar 50mg PO daily with holding parameters -Cardiology on consult, Dr Hazel, help appreciated Acute Kidney Injury -BUN/Cr 32/1.8 on admission -Patient underwent recent cardiac catherization -We will hold Metformin at this time -Monitor with serial BMPs -Follow up random sodium and random urea -Hold Lasix for now History of systolic heart failure -Patient with [employer] Life vest -BNP within normal limits, Troponin negative x 1 -CXR showed no active disease -Last echo 12/2018 showed EF 30%, L ventricular systolic function moderately to severely impaired, dilated cardiomyopathy (see full report) CAD -Continue ASA 81mg PO daily, Plavix 75mg PO daily -Crestor 5mg PO HS -Cardiology on consult, Dr Hazel, help appreciated Gastritis -Protonix 40mg PO daily Diabetes Mellitus -Hold Metformin at this time -ISS and accuchecks ACHS Elevated calcium -Calcium 12.3 on admission -Monitor serial chemistries GI/DVT ppx: -Protonix 40mg PO daily -Heparin 5000 SC Q12H Plan discussed with Dr Emmy Granados DO PGY-2
[2018-12-24] MEDS: (Novolog) Insulin Aspart, Recombinant 100 u/ml 10 ml vial SC SCH (21:57)
--- NOTE | 2018-12-24 22:05 | CP.PCM.CON ---
Past Patient History - Infectious Disease Hx of Infectious Diseases: None - Past Medical History & Family History Past Medical History?: Yes - Past Social History Smoking Status: Former Smoker - CARDIAC Hx Congestive Heart Failure: Yes Hx Hypercholesterolemia: Yes Hx Hypertension: Yes - PULMONARY Hx Respiratory Disorders: No - NEUROLOGICAL Hx Neurological Disorder: No - HEENT Hx HEENT Problems: No - RENAL Hx Chronic Kidney Disease: No - ENDOCRINE/METABOLIC Hx Endocrine Disorders: Yes Hx Diabetes Mellitus Type 2: Yes - HEMATOLOGICAL/ONCOLOGICAL Hx Blood Disorders: No - INTEGUMENTARY Hx Dermatological Problems: No - MUSCULOSKELETAL/RHEUMATOLOGICAL Hx Falls: No - GASTROINTESTINAL Hx Gastritis: Yes - GENITOURINARY/GYNECOLOGICAL Hx Genitourinary Disorders: No - PSYCHIATRIC Hx Substance Use: No - SURGICAL HISTORY Hx Surgeries: Yes Hx Orthopedic Surgery: Yes (RIGHT ANKLE WITH SCREWS) - ANESTHESIA Hx Anesthesia: Yes Hx Anesthesia Reactions: No Hx Malignant Hyperthermia: No Meds Allergies/Adverse Reactions: Allergies Allergy/AdvReac Type Severity Reaction Status Date / Time No Known Allergies Allergy Verified 12/24/18 14:36 - Medications Medications: Current Medications Aspirin (Aspirin Chewable) 81 mg PO DAILY [facility] Clopidogrel Bisulfate (Plavix) 75 mg PO DAILY [facility] Heparin Sodium (Porcine) (Heparin) 5,000 units SC Q12 [facility] Last Admin: 12/24/18 21:56 Dose: 5,000 units Insulin Aspart (Novolog) 0 unit SC ACHS [facility]; Protocol Last Admin: 12/24/18 21:57 Dose: Not Given Losartan Potassium (Cozaar) 50 mg PO DAILY [facility] Pantoprazole Sodium (Protonix Ec Tab) 40 mg PO DAILY [facility] Rosuvastatin Calcium (Crestor) 5 mg PO HS [facility] Last Admin: 12/24/18 21:56 Dose: 5 mg Results - Vital Signs Recent Vital Signs: Last Vital Signs Temp 98.5 F 12/24/18 21:10 Pulse 65 12/24/18 21:10 Resp 16 12/24/18 21:10 BP 118/75 12/24/18 21:10 Pulse Ox 99 12/24/18 21:10 - Labs Result Diagrams: 12/24/18 15:28 12/24/18 15:28 Labs: Laboratory Results - last 24 hr 12/24/18 12/24/18 15:28 15:28 WBC 9.5 RBC 5.94 H Hgb 13.4 Hct 43.1 MCV 72.5 L MCH 22.6 L MCHC 31.2 L RDW 15.9 H Plt Count 185 MPV 10.8 Neut % (Auto) 73.8 Lymph % (Auto) 15.5 L [place] % (Auto) 7.9 Eos % (Auto) 2.0 Baso % (Auto) 0.8 Neut # (Auto) 7.0 Lymph # (Auto) 1.5 [place] # (Auto) 0.7 Eos # (Auto) 0.2 Baso # (Auto) 0.1 Sodium 138 Potassium 4.9 Chloride 106 Carbon Dioxide 24 Anion Gap 14 BUN 32 H Creatinine 1.8 H Est GFR ( Amer) 47 Est GFR (Non-Af Amer) 39 Random Glucose 93 Calcium 12.3 H Troponin I < 0.0120 NT-Pro-B Natriuret Pep 181
[2018-12-25 06:47] LABS: BASO # 0.1 K/uL (0.0-0.2); BASO % 0.7 % (0.0-2.0); EOS # 0.3 K/uL (0.0-0.7); EOS % 2.9 % (0.0-4.0); LYMPH % 21.3 % (20.0-40.0); MEAN CELL VOLUME 71.9 fL (80.0-94.0); MEAN CORPUSCULAR HEMOGLOBIN 22.2 pg (27.0-31.0); MEAN CORPUSCULAR HGB CONC 30.9 g/dL (33.0-37.0); MEAN PLATELET VOLUME 10.5 fL (7.2-11.7); MONO # 0.7 K/uL (0.0-0.8); MONO % 7.1 % (0.0-10.0); NEUT # 6.4 K/uL (1.8-7.0); NRBC % 0.2 % (0.0-2.0); RBC 6.1 Mil/uL (4.40-5.90); WHITE BLOOD COUNT 9.5 K/uL (4.8-10.8)
[2018-12-25 06:51] LABS: ALB/GLOB RATIO 1.3 (1.0-2.1); ALBUMIN 4.1 g/dL (3.5-5.0); ALT/SGPT 35 U/L (21-72); AST/SGOT 28 U/L (17-59); BLOOD UREA NITROGEN 26 mg/dL (9-20); CALCIUM 12.3 mg/dl (8.6-10.4); GFR NON-AFRICAN AMERICAN > 60
[2018-12-25 07:00] LABS: HEMOGLOBIN 13.5 g/dL (12.0-18.0)
[2018-12-25] MEDS: (Novolog) Insulin Aspart, Recombinant 100 u/ml 10 ml vial SC SCH ×4 (07:36→22:31)
[2018-12-25] MEDS: Pantoprazole 40 mg EC Tab PO SCH (09:13)
--- NOTE | 2018-12-25 09:23 | CARD ---
APPROVED REPORT Date of service: 12/24/2018 EKG Measurement Heart [id number] <Conclusion> Sinus bradycardia Possible Left atrial enlargement Left ventricular hypertrophy with QRS widening Consider Lateral ischemia Abnormal ECG
[2018-12-25] MEDS ORDERED: Magnesium Oxide 400 mg Tab UD PO ONE (16:13)
--- NOTE | 2018-12-25 16:14 | CP.PCM.PN ---
Subjective - Date & Time of Evaluation Date of Evaluation: 12/25/18 Time of Evaluation: 16:07 - Subjective Subjective: Medicine Progress Note for Dr. Booth's service S/E at bedside. Offers no acute complaints. Denies fevers, chills, chest pain, sob, n/v, constipation or diarrhea, and dysuria. Objective - Vital Signs/Intake and Output Vital Signs (last 24 hours): Temp Pulse Resp BP Pulse Ox 98.8 F 53 L 20 100/65 100 12/25/18 07:00 12/25/18 07:30 12/25/18 07:00 12/25/18 07:00 12/25/18 07:00 - Medications Medications: Current Medications Aspirin (Aspirin Chewable) 81 mg PO DAILY [facility] Last Admin: 12/25/18 09:13 Dose: 81 mg Clopidogrel Bisulfate (Plavix) 75 mg PO DAILY [facility] Last Admin: 12/25/18 09:13 Dose: 75 mg Heparin Sodium (Porcine) (Heparin) 5,000 units SC Q12 [facility] Last Admin: 12/25/18 09:14 Dose: 5,000 units Insulin Aspart (Novolog) 0 unit SC ACHS [facility]; Protocol Last Admin: 12/25/18 12:43 Dose: Not Given Losartan Potassium (Cozaar) 50 mg PO DAILY [facility] Last Admin: 12/25/18 09:15 Dose: Not Given Pantoprazole Sodium (Protonix Ec Tab) 40 mg PO DAILY [facility] Last Admin: 12/25/18 09:13 Dose: 40 mg Rosuvastatin Calcium (Crestor) 5 mg PO HS [facility] Last Admin: 12/24/18 21:56 Dose: 5 mg - Labs Labs: 12/25/18 06:22 12/25/18 06:22 - Constitutional Appears: Non-toxic, No Acute Distress - Head Exam Head Exam: NORMAL INSPECTION - Eye Exam Eye Exam: EOMI, Normal appearance. absent: Nystagmus, Scleral icterus - ENT Exam ENT Exam: Mucous Membranes Moist - Respiratory Exam Respiratory Exam: Decreased Breath Sounds, NORMAL BREATHING PATTERN. absent: Clear to Ausculation Bilateral, Rales, Rhonchi, Wheezes - Cardiovascular Exam Cardiovascular Exam: REGULAR RHYTHM, +S1, +S2 - GI/Abdominal Exam GI & Abdominal Exam: Soft, Normal Bowel Sounds. absent: Tenderness - Extremities Exam Extremities Exam: Normal Inspection. absent: Pedal Edema - Neurological Exam Neurological Exam: Alert, Awake, Oriented x3 - Skin Skin Exam: Dry, Intact, Normal Color Additional comments: wearing life vest Assessment and Plan - Assessment and Plan (Free Text) Assessment: 58M w/ PMH of HTN, systolic CHF, and DM admitted for hypotension. Plan: Hypotension (asymptomatic) On telemetry BPs improved after IV hydration We will hold Coreg and Lasix at this time due to low HR and soft BP Cozaar 50mg PO daily with holding parameters Cardiology on consult, Dr Hazel, help appreciated Acute Kidney Injury improved, likely 2/2 recent cardiac cath, repeat CMP in AM May restart metformin with repeat CMP in AM Lasix held Hypomagnesemia 1 x of mag ox 400mg po bid repeat mag in AM History of systolic heart failure Patient with [employer]oll Life vest BNP within normal limits, Troponin negative x 1 CXR showed no active disease Last echo 12/2018 showed EF 30%, L ventricular systolic function moderately to severely impaired, dilated cardiomyopathy (see full report) CAD ASA 81mg PO daily, Plavix 75mg PO daily Crestor 5mg PO HS Cardiology on consult, Dr Hazel, help appreciated Gastritis Protonix 40mg PO daily Diabetes Mellitus Hold Metformin at this time ISS and accuchecks ACHS Elevated calcium Calcium 12.3 on admission Monitor serial chemistries GI/DVT ppx Protonix 40mg PO daily Heparin 5000 SC Q12H Plan discussed with Dr Emmy Hunt DO PGY-1
--- NOTE | 2018-12-25 23:15 | CP.PCM.PN ---
Subjective - Date & Time of Evaluation Date of Evaluation: 12/25/18 Time of Evaluation: 13:10 - Subjective Subjective: Patient seen and evaluated Feels better improved breathing Possible discharge tomorrow Decrease the dose of the BP meds Objective - Vital Signs/Intake and Output Vital Signs (last 24 hours): Temp Pulse Resp BP Pulse Ox 97.5 F L 10 L 20 107/69 98 12/25/18 15:34 12/25/18 16:00 12/25/18 15:34 12/25/18 15:34 12/25/18 15:34 Intake and Output: 12/25/18 12/26/18 18:59 06:59 Intake Total 320 Balance 320 - Medications Medications: Current Medications Aspirin (Aspirin Chewable) 81 mg PO DAILY [facility] Last Admin: 12/25/18 09:13 Dose: 81 mg Clopidogrel Bisulfate (Plavix) 75 mg PO DAILY [facility] Last Admin: 12/25/18 09:13 Dose: 75 mg Heparin Sodium (Porcine) (Heparin) 5,000 units SC Q12 [facility] Last Admin: 12/25/18 21:27 Dose: 5,000 units Insulin Aspart (Novolog) 0 unit SC [facility]; Protocol Last Admin: 12/25/18 22:31 Dose: Not Given Losartan Potassium (Cozaar) 50 mg PO DAILY [facility] Last Admin: 12/25/18 09:15 Dose: Not Given Pantoprazole Sodium (Protonix Ec Tab) 40 mg PO DAILY [facility] Last Admin: 12/25/18 09:13 Dose: 40 mg Rosuvastatin Calcium (Crestor) 5 mg PO [facility] Last Admin: 12/25/18 21:27 Dose: 5 mg - Labs Labs: 12/25/18 06:22 12/25/18 06:22
[2018-12-26 01:47] VITALS: TEMP 98.1
[2018-12-26 07:16] LABS: BASO # 0.1 K/uL (0.0-0.2); BASO % 1.1 % (0.0-2.0); EOS # 0.2 K/uL (0.0-0.7); EOS % 2.6 % (0.0-4.0); HEMOGLOBIN 13.4 g/dL (12.0-18.0); LYMPH # 2.1 K/uL (1.0-4.3); LYMPH % 23.3 % (20.0-40.0); MEAN CELL VOLUME 72.5 fL (80.0-94.0); MEAN CORPUSCULAR HEMOGLOBIN 22.6 pg (27.0-31.0); MEAN CORPUSCULAR HGB CONC 31.2 g/dL (33.0-37.0); MEAN PLATELET VOLUME 11.5 fL (7.2-11.7); MONO # 0.6 K/uL (0.0-0.8); MONO % 6.8 % (0.0-10.0); NEUT # 6.1 K/uL (1.8-7.0); NEUT % 66.2 % (50.0-75.0); RBC 5.94 Mil/uL (4.40-5.90); RED CELL DISTRIBUTION WIDTH 15.3 % (11.5-14.5); WHITE BLOOD COUNT 9.1 K/uL (4.8-10.8)
[2018-12-26 07:46] LABS: ALB/GLOB RATIO 1.3 (1.0-2.1); ALBUMIN 4.1 g/dL (3.5-5.0); ALT/SGPT 31 U/L (21-72); AST/SGOT 21 U/L (17-59); BLOOD UREA NITROGEN 31 mg/dL (9-20); CALCIUM 12.7 mg/dl (8.6-10.4); GFR NON-AFRICAN AMERICAN > 60
[2018-12-26] MEDS: (Novolog) Insulin Aspart, Recombinant 100 u/ml 10 ml vial SC SCH ×2 (07:52→12:28)
[2018-12-26] MEDS: Pantoprazole 40 mg EC Tab PO SCH (09:25)
[2018-12-26 09:35] VITALS: BP 134/84; PULSE 77; RESP 18; O2SAT 99
[2018-12-26] MEDS ORDERED: Magnesium Sulfate 1 gm in D5W 1 GM/100 ML BAG IVPB ONE (10:00)
--- NOTE | 2018-12-26 14:00 | CP.PCM.PN ---
Subjective - Date & Time of Evaluation Date of Evaluation: 12/26/18 Time of Evaluation: 13:56 - Subjective Subjective: Medicine Progress Note for Dr. Booth's service S/E at bedside. Offers no acute complaints. Denies sob, fevers, chills, chest pain, n/v, constipation or diarrhea, and disease. Objective - Vital Signs/Intake and Output Vital Signs (last 24 hours): Temp Pulse Resp BP Pulse Ox 98.1 F 77 18 134/84 99 12/26/18 07:30 12/26/18 07:30 12/26/18 07:30 12/26/18 07:30 12/26/18 07:30 Intake and Output: 12/26/18 12/26/18 06:59 18:59 Intake Total 320 Balance 320 - Medications Medications: Current Medications Aspirin (Aspirin Chewable) 81 mg PO DAILY [facility] Last Admin: 12/26/18 09:25 Dose: 81 mg Clopidogrel Bisulfate (Plavix) 75 mg PO DAILY [facility] Last Admin: 12/26/18 09:25 Dose: 75 mg Heparin Sodium (Porcine) (Heparin) 5,000 units SC Q12 [facility] Last Admin: 12/26/18 09:25 Dose: 5,000 units Insulin Aspart (Novolog) 0 unit SC ACHS [facility]; Protocol Last Admin: 12/26/18 12:28 Dose: Not Given Losartan Potassium (Cozaar) 50 mg PO DAILY [facility] Last Admin: 12/26/18 09:24 Dose: 50 mg Pantoprazole Sodium (Protonix Ec Tab) 40 mg PO DAILY [facility] Last Admin: 12/26/18 09:25 Dose: 40 mg Rosuvastatin Calcium (Crestor) 5 mg PO HS [facility] Last Admin: 12/25/18 21:27 Dose: 5 mg - Labs Labs: 12/26/18 07:04 12/26/18 07:04 - Additional Findings Additional findings: - Constitutional Appears: Non-toxic, No Acute Distress - Head Exam Head Exam: NORMAL INSPECTION - Eye Exam Eye Exam: EOMI, Normal appearance. absent: Nystagmus, Scleral icterus - ENT Exam ENT Exam: Mucous Membranes Moist - Respiratory Exam Respiratory Exam: Decreased Breath Sounds, NORMAL BREATHING PATTERN. absent: Clear to Ausculation Bilateral, Rales, Rhonchi, Wheezes - Cardiovascular Exam Cardiovascular Exam: REGULAR RHYTHM, +S1, +S2 - GI/Abdominal Exam GI & Abdominal Exam: Soft, Normal Bowel Sounds. absent: Tenderness - Extremities Exam Extremities Exam: Normal Inspection. absent: Pedal Edema - Neurological Exam Neurological Exam: Alert, Awake, Oriented x3 - Skin Skin Exam: Dry, Intact, Normal Color Additional comments: wearing life vest Assessment and Plan - Assessment and Plan (Free Text) Assessment: 58M w/ PMH of HTN, systolic CHF, and DM admitted for hypotension. Plan: Hypotension (asymptomatic) BPs improved after IV hydration We will hold Coreg and Lasix at this time due to low HR and soft BP; Consider restarting home meds if bp and heart rate permit Cozaar 50mg PO daily with holding parameters Cardiology on consult, Dr Hazel, help appreciated Acute Kidney Injury (resolved) improved, likely 2/2 recent cardiac cath, repeat CMP in AM May restart metformin with repeat CMP in AM Lasix held Hypomagnesemia 1x magnesium sulfate IVPB repeat mag in am History of systolic heart failure Cardio consulted: Dr. Hazel- appreciate recommendations Patient with [employer]oll Life vest BNP within normal limits, Troponin negative x 1 CXR showed no active disease Last echo 12/2018 showed EF 30%, L ventricular systolic function moderately to severely impaired, dilated cardiomyopathy (see full report) CAD ASA 81mg PO daily, Plavix 75mg PO daily Crestor 5mg PO HS Cardiology on consult, Dr Hazel, help appreciated Gastritis Protonix 40mg PO daily Diabetes Mellitus Hold Metformin at this time ISS and accuchecks ACHS Elevated calcium Calcium 12.3 on admission PTH intact and Vitamin D levels pending Monitor serial chemistries GI/DVT ppx Protonix 40mg PO daily Heparin 5000 SC Q12H Plan discussed with Dr Emmy Hunt DO PGY-1
--- NOTE | 2018-12-26 15:13 | CP.PCM.DIS ---
Provider - Provider Date of Admission: 12/24/18 17:28 Attending physician: Eligio Booth Jr, MD Consults: 12/24/18 18:39 Cardiology Consult Routine Comment: Consulting Provider: Ant Hazel Consulting Physician: Ant Hazel Reason for Consult: Hypotension, CHF EF 30% Time Spent in preparation of Discharge (in minutes): 25 Hospital Course - Lab Results Lab Results: Most Recent Lab Values WBC 9.1 K/uL (4.8-10.8) 12/26/18 07:04 RBC 5.94 Mil/uL (4.40-5.90) H 12/26/18 07:04 Hgb 13.4 g/dL (12.0-18.0) 12/26/18 07:04 Hct 43.0 % (35.0-51.0) 12/26/18 07:04 MCV 72.5 fL (80.0-94.0) L 12/26/18 07:04 MCH 22.6 pg (27.0-31.0) L 12/26/18 07:04 MCHC 31.2 g/dL (33.0-37.0) L 12/26/18 07:04 RDW 15.3 % (11.5-14.5) H 12/26/18 07:04 Plt Count 189 K/uL (130-400) 12/26/18 07:04 MPV 11.5 fL (7.2-11.7) 12/26/18 07:04 Neut % (Auto) 66.2 % (50.0-75.0) 12/26/18 07:04 Lymph % (Auto) 23.3 % (20.0-40.0) 12/26/18 07:04 Gordon % (Auto) 6.8 % (0.0-10.0) 12/26/18 07:04 Eos % (Auto) 2.6 % (0.0-4.0) 12/26/18 07:04 Baso % (Auto) 1.1 % (0.0-2.0) 12/26/18 07:04 Neut # (Auto) 6.1 K/uL (1.8-7.0) 12/26/18 07:04 Lymph # (Auto) 2.1 K/uL (1.0-4.3) 12/26/18 07:04 Gordon # (Auto) 0.6 K/uL (0.0-0.8) 12/26/18 07:04 Eos # (Auto) 0.2 K/uL (0.0-0.7) 12/26/18 07:04 Baso # (Auto) 0.1 K/uL (0.0-0.2) 12/26/18 07:04 Differential Comment 12/26/18 07:04 Sodium 137 mmol/L (132-148) 12/26/18 07:04 Potassium 4.9 mmol/L (3.6-5.2) 12/26/18 07:04 Chloride 102 mmol/L (98-107) 12/26/18 07:04 Carbon Dioxide 29 mmol/L (22-30) 12/26/18 07:04 Anion Gap 11 (10-20) 12/26/18 07:04 BUN 31 mg/dL (9-20) H 12/26/18 07:04 Creatinine 1.1 mg/dL (0.8-1.5) 12/26/18 07:04 Est GFR ( Amer) > 60 12/26/18 07:04 Est GFR (Non-Af Amer) > 60 12/26/18 07:04 POC Glucose (mg/dL) 133 mg/dL (65-110) H 12/26/18 06:20 Random Glucose 135 mg/dL (75-110) H 12/26/18 07:04 Calcium 12.7 mg/dl (8.6-10.4) H 12/26/18 07:04 Phosphorus 2.8 mg/dL (2.5-4.5) 12/26/18 07:04 Magnesium 1.4 mg/dL (1.6-2.3) L 12/26/18 07:04 Total Bilirubin 0.2 mg/dL (0.2-1.3) 12/26/18 07:04 AST 21 U/L (17-59) 12/26/18 07:04 ALT 31 U/L (21-72) 12/26/18 07:04 Alkaline Phosphatase 92 U/L (38-126) 12/26/18 07:04 Troponin I < 0.0120 ng/mL (0.00-0.120) 12/24/18 15:28 NT-Pro-B Natriuret Pep 181 pg/mL (0-900) 12/24/18 15:28 Total Protein 7.1 g/dL (6.3-8.3) 12/26/18 07:04 Albumin 4.1 g/dL (3.5-5.0) 12/26/18 07:04 Globulin 3.1 gm/dL (2.2-3.9) 12/26/18 07:04 Albumin/Globulin Ratio 1.3 (1.0-2.1) 12/26/18 07:04 Ur Random Sodium 130 mmol/L 12/25/18 01:02 Ur Random Urea Nitrogn 732 mg/dL 12/25/18 01:02 - Hospital Course Hospital Course: Upon Admission Patient is a 58 year old male with past medical history of systolic CHF (last EF 30%), HTN, Diabetes Mellitus, recent cardiac catherization who presented to the emergency department for low blood pressure reading. Patient states that he was home this afternoon when he checked his blood pressure and it was "very low". He is unable to recall how low the reading was. States that he was asymptomatic at that time. Patient reports that he is compliant with his medications and took them all at approximately 8am this morning. On initial presentation to the emergency room, patient's blood pressure was 88/58. Patient was recently admitted and underwent cardiac catherization on December 18, 2018. He offers no complaints at this time. Denies headaches, dizziness, cp, palpitation, sob, abdominal pain, urinary symptoms, changes in bowel habits. Hospital Course 58 year old admitted for low blood pressure. Etiology likely related to overmedication. Cardiology consult was placed due to cardiac status. Dr. Hazel evaluated patient and recommended life vest with medications and outpatient followup. Discharge Plan Patient left AMA 2/2 family emergency but was given discharge medications. Discharge Exam - Head Exam Head Exam: NORMAL INSPECTION - Eye Exam Eye Exam: EOMI - ENT Exam ENT Exam: Mucous Membranes Moist - Respiratory Exam Respiratory Exam: NORMAL BREATHING PATTERN. absent: Decreased Breath Sounds, Respiratory Distress - Cardiovascular Exam Cardiovascular Exam: REGULAR RHYTHM, +S1, +S2 - GI/Abdominal Exam GI & Abdominal Exam: Normal Bowel Sounds, Soft. absent: Tenderness - Neurological Exam Neurological exam: Alert, Oriented x3 - Psychiatric Exam Psychiatric exam: Normal Affect, Normal Mood - Skin Skin Exam: Dry, Intact, Normal Color Discharge Plan - Discharge Medications Prescriptions: Carvedilol [Coreg] 6.125 mg PO BID #60 tab Losartan [Cozaar] 25 mg PO DAILY #30 tab metFORMIN [glucOPHAGE] 500 mg PO BIDCC #60 tab - Follow Up Plan Condition: STABLE Disposition: HOME/ ROUTINE Instructions: Acute Kidney Injury (DC) Additional Instructions: 1. Patient is stable for discharge to home as per Dr. Booth. 2. Patient will continue taking the following medications as follows: Aspirin 81mg by mouth daily Metformin 500mg by mouth twice a day after meals Carvedilol 6.125mg by mouth twice a day Cozaar 25mg by mouth once a day Plavix 75mg by mouth once a day Lasix 20mg by mouth once a day Crestor 5mg by mouth at night 3. Patient should followup with Dr. Hazel within 2 weeks of discharge from hospital. 4. Patient should return to hospital if symptoms worsen or recur. 5. Patient understands the plan as above and agrees. Referrals: Ant Hazel MD [Staff Provider] -
--- NOTE | 2018-12-26 15:30 | PCM.HF ---
Heart Failure Core Measure - Heart Failure Ejection Fraction: Less Than 40 % CLEMENTINA Inhibitor Prescribed: No Contraindication/Reason for not providing: on clementina Beta-Mya Prescribed: Carvedilol Angiotensin II Receptor Mya Prescribed: Yes AnticoagulationTherapy for Atrial Fibrillation/Atrialflutter: No Contraindication/Reason for not providing: no hx of afib Aldosterone Antagonist Prescribed: No Contraindication/Reason for not providing: risk for hyperkalemia Hydralazine Nitrate Prescribed: No Contraindication/Reason for not providing: bp in 100's Implantable Cardioverter Defibrillator Therapy: No Contraindication/Reason for not providing: life vest Cardiac Resynchronization Therapy Prescribed: No Contraindication/Reason for not providing: life vest - Follow up Will be discharged to: Home Follow Up Date (must be within 7 days from discharge): 12/31/18 Follow Up Time: 13:00
== END 2018-12-26 15:20 | disposition left against medical advice (07) ==
LOC: C.ER 14:09 → C.9E 17:28 → C.6T 20:54
PROVIDERS: ADMIT Internal Medicine; ATTEND Internal Medicine
DX: N17.9 Acute kidney failure, unspecified (principal); I50.22 Chronic systolic (congestive) heart failure; I42.0 Dilated cardiomyopathy; I25.10 Atherosclerotic heart disease of native coronary artery without angina pectoris; I11.0 Hypertensive heart disease with heart failure; E11.9 Type 2 diabetes mellitus without complications; Z87.891 Personal history of nicotine dependence
CPT/HCPCS: 36415; 71045; 80048; 80053; 82948; 83735; 83880; 84100; 84300; 84484; 84540; 85025; 93005; 96372; 99285; G0378; J1644; J3475; J7030